=== PATIENT | male | born 1950 | race Caucasian/White ===

== ENCOUNTER 2016-11-22 11:28 | Inpatient (IN) ==
[2016-11-22] MEDS ORDERED: Aspirin 81 MG TAB.CHEW PO ONE (12:47)
--- NOTE | 2016-11-22 12:50 | Emergency Department Note ---
Disposition Clinical Impression: Non-ST elevated myocardial infarction Disposition: Admitted As Inpatient Condition: Fair Referrals: El Herman MD [Primary Care Provider] - Forms: ED Satisfaction Letter Time of Disposition: 13:37 Chest Pain HPI - General Chief Complaint: ED Chest Pain Stated Complaint: chest pain Time Seen by Provider: 11/22/16 12:40 Source: patient, family Mode of arrival: private vehicle Limitations: no limitations Vital Signs Reviewed: Yes Nursing Notes Reviewed: Yes - History of Present Illness Pt complaint: chest pain Onset (ago): day(s) (3 days) Duration: intermittent (Noted particularly at night when lying down. This current episode has been going on since late last night and has been constant and continuous since then although not as intense at this time as it has been throughout the night.) Onset: during rest Pain Location: left chest Severity: moderate Severity scale (1-10): 5 Quality: heaviness Pain Radiation: LUE Improves with: nothing Worsens with: nothing (The patient notes that the discomfort is worse at night when he is laying in bed. He does not note an increase in discomfort with exertion) Associated symptoms: Reports: nausea. Denies: diaphoresis, dyspnea - Related Data Home Medications Medication Instructions Recorded Confirmed Aripiprazole [Abilify] 2 mg PO HS 12/16/15 07/18/16 Aspirin 325 mg PO DAILY 12/16/15 07/18/16 Citalopram Hydrobromide [Celexa] 40 mg PO DAILY 12/16/15 07/18/16 Gabapentin [Neurontin] 300 mg PO TID 12/16/15 07/18/16 Oxycodone HCl [Roxicodone 30 MG 30 mg PO 5XD 12/16/15 07/18/16 Immed Release] Acetaminophen [Tylenol Arthritis] 650 mg PO Q6H PRN 05/27/16 07/18/16 Alprazolam [Xanax 0.25 MG Tablet] 0.25 mg PO DAILY 05/27/16 07/18/16 Oxycodone HCl/Acetaminophen 1 tab PO TID PRN 05/27/16 07/18/16 [Percocet 10-325 mg Tablet] Oxygen 1 each .ROUTE AD 07/18/16 07/18/16 Previous Rx's Medication Instructions Recorded Clindamycin HCl [Cleocin HCl] 300 mg PO QID #20 capsule 07/18/16 Allergies Allergy/AdvReac Type Severity Reaction Status Date / Time sulfamethoxazole AdvReac Itching Verified 12/16/15 05:34 [From ] trimethoprim [From ] AdvReac Itching Verified 12/16/15 05:34 All systems ED: reviewed and negative except as stated. Constitutional: Denies: fever, chills ENT ED: Denies: ear pain, throat pain, congestion Cardiovascular: Reports: chest pain. Denies: palpitations Respiratory: Denies: cough, dyspnea, wheezes Gastrointestinal: Reports: nausea. Denies: abdominal pain, vomiting Musculoskeletal: Denies: back pain Integumentary: Denies: rash Neurological: Denies: headache Chest Pain PMH - Past Medical History Medical history: Reports: arthritis, hypertension, kidney stones, TIA, other Surgical history: Reports: sinus surgery, other Psychiatric history: Reports: depression - Social History Smoking Status: Never smoker Alcohol use: Reports: rarely Drug use: Reports: none Physical Exam - General Limitations: no limitations General appearance: alert, in no apparent distress - Head Head exam: atraumatic, normocephalic - Eye Eye exam: Present: normal appearance, PERRL, EOMI - ENT ENT exam: normal exam, normal oropharynx, mucous membranes moist, normal external ear exam - Neck Neck exam: Present: normal inspection, full ROM. Absent: tenderness, meningismus - Chest Chest inspection: Present: normal inspection, symmetric chest wall rise. Absent : tenderness - Respiratory Respiratory exam: Present: normal lung sounds bilaterally. Absent: respiratory distress, wheezes - Cardiovascular Cardiovascular exam: Present: regular rate, normal rhythm, normal heart sounds - Abdominal Exam Abdominal exam: Present: soft, Non-Tender - Extremities Exam Extremities exam: Present: normal inspection, full ROM. Absent: pedal edema - Back Exam Back exam: Present: full ROM. Absent: tenderness - Neurological Exam Neurological exam: Present: alert, oriented X3 - Psychiatric Psychiatric exam: Present: normal affect, normal mood - Skin Skin exam: Present: warm, dry. Absent: rash Course Course Narrative: Patient presents with complaint of chest pain. It seems to be worse with laying down at night. Despite discomfort since the late hours last night, his EKG is normal. Physical exam is unremarkable. The patient does have cardiac risk factors although I am not certain that today's discomfort is cardiac. I am going to do a chest pain workup on the patient including a d-dimer. I will give him an aspirin. Disposition will be based on diagnostic results and reevaluation. - Reevaluation(s) Reevaluation #1: Patient's troponin came back elevated. We will treat him as an and STEMI. I will arrange to get him admitted. At this time he is asymptomatic. Time: 13:36 Reevaluation #2: Patient remains asymptomatic. I spoke with the hospitalist. We will arrange the admission. Time: 15:19 - Consultations Consultation #1: Dr. Ying, hospitalist - I discussed the case with the hospitalist and she has accepted the patient for admission. She is aware of presentation, current symptoms, and diagnostic results. Time: 15:17 Vital Signs Temperature 98.7 F 11/22/16 11:29 Pulse Rate 75 11/22/16 11:29 Respiratory Rate 20 11/22/16 11:29 Blood Pressure 155/94 11/22/16 11:29 O2 Sat by Pulse Oximetry 98 11/22/16 11:29 Temperature 98.7 F 11/22/16 11:29 Pulse Rate 75 11/22/16 11:29 Respiratory Rate 20 11/22/16 11:29 Blood Pressure 155/94 11/22/16 11:29 O2 Sat by Pulse Oximetry 98 11/22/16 11:29 Oxygen Delivery Oxygen Delivery Room Air Chest Pain - Medical Records Medical records reviewed: Yes I reviewed the patient's medical records. - Lab Data Lab results reviewed: Yes I reviewed the patient's lab results. Result diagrams: 11/22/16 12:52 11/22/16 12:52 Lab Results 11/22/16 11/22/16 11/22/16 Range/Units 12:52 12:52 12:52 WBC 9.6 (4.3-11.1) K/mcL RBC 4.87 (4.19-5.50) M/mcL Hgb 15.0 (12.9-16.9) g/dL Hct 45.7 (37.5-50.1) % MCV 93.8 (83.0-100.0) fL MCH 30.8 (28.0-33.3) pg MCHC 32.8 (31.6-35.5) g/dL RDW 13.4 (11.5-14.5) % Plt Count 226 (140-400) K/mcL MPV 9.5 (9.4-12.4) fL Immature Gran % 0.4 (0-4) % Seg Neutrophils % 66.6 % Lymphocytes % 23.4 % Monocytes % 7.4 % Eosinophils % 1.9 % Basophils % 0.3 % Neutrophils # 6.4 (1.6-8.9) K/mcL Lymphocytes # 2.2 (0.6-4.6) K/mcL Monocytes # 0.7 (0.0-1.3) K/mcL Eosinophils # 0.2 (0.0-0.6) K/mcL Basophils # 0.0 (0.0-0.2) K/mcL PT 11.5 (9.4-12.1) Seconds INR 1.1 APTT 29.4 (26.0-36.0) Seconds D-Dimer 326 (0-500) ng/mLFEU Sodium 139 (136-145) mEq/L Potassium 4.6 H (3.5-4.5) mEq/L Chloride 104 (98-109) mEq/L Carbon Dioxide 25 (19-29) mEq/L BUN 20 (8-26) mg/dL Creatinine 0.87 (0.72-1.25) mg/dL Est GFR ( Amer) > 60 (> 60) Est GFR (Non-Af Amer) > 60 (> 60) BUN/Creatinine Ratio 23 (6-26) Glucose 94 (70-99) mg/dL Calculated Osmolality 290 (280-300) Calcium 9.8 (8.6-10.8) mg/dL Troponin I (0-0.03) ng/mL 11/22/16 11/22/16 Range/Units 12:52 14:02 WBC (4.3-11.1) K/mcL RBC (4.19-5.50) M/mcL Hgb (12.9-16.9) g/dL Hct (37.5-50.1) % MCV (83.0-100.0) fL MCH (28.0-33.3) pg MCHC (31.6-35.5) g/dL RDW (11.5-14.5) % Plt Count (140-400) K/mcL MPV (9.4-12.4) fL Immature Gran % (0-4) % Seg Neutrophils % % Lymphocytes % % Monocytes % % Eosinophils % % Basophils % % Neutrophils # (1.6-8.9) K/mcL Lymphocytes # (0.6-4.6) K/mcL Monocytes # (0.0-1.3) K/mcL Eosinophils # (0.0-0.6) K/mcL Basophils # (0.0-0.2) K/mcL PT 11.7 (9.4-12.1) Seconds INR 1.1 APTT 29.1 (26.0-36.0) Seconds D-Dimer (0-500) ng/mLFEU Sodium (136-145) mEq/L Potassium (3.5-4.5) mEq/L Chloride (98-109) mEq/L Carbon Dioxide (19-29) mEq/L BUN (8-26) mg/dL Creatinine (0.72-1.25) mg/dL Est GFR ( Amer) (> 60) Est GFR (Non-Af Amer) (> 60) BUN/Creatinine Ratio (6-26) Glucose (70-99) mg/dL Calculated Osmolality (280-300) Calcium (8.6-10.8) mg/dL Troponin I 1.22 H* (0-0.03) ng/mL - Radiology Data Radiology results reviewed: Yes I reviewed the patient's radiology results. - EKG Data EKG attestation: Yes I reviewed and interpreted this EKG. EKG shows normal: sinus rhythm, axis, intervals, QRS complexes, ST-T waves Rate: normal Interpretation: no acute changes, normal EKG
[2016-11-22 13:08] LABS: Basophils % 0.3 %; Eosinophils # 0.2 K/mcL (0.0-0.6); Eosinophils % 1.9 %; Hematocrit 45.7 % (37.5-50.1); Immature Granulocytes % 0.4 % (0-4); Lymphocytes # 2.2 K/mcL (0.6-4.6); Lymphocytes % 23.4 %; Mean Corpuscular HGB Conc 32.8 g/dL (31.6-35.5); Mean Corpuscular Hemoglobin 30.8 pg (28.0-33.3); Mean Corpuscular Volume 93.8 fL (83.0-100.0); Mean Platelet Volume 9.5 fL (9.4-12.4); Monocytes # 0.7 K/mcL (0.0-1.3); Monocytes % 7.4 %; Neutrophils # 6.4 K/mcL (1.6-8.9); Platelet Count 226 K/mcL (140-400); Red Blood Count 4.87 M/mcL (4.19-5.50); Red Cell Distribution Width 13.4 % (11.5-14.5); Segmented Neutrophils % 66.6 %
[2016-11-22 13:18] LABS: INR 1.1; Prothrombin Time 11.5 Seconds (9.4-12.1)
[2016-11-22 13:20] LABS: Activated Partial Thrombo Time 29.4 Seconds (26.0-36.0)
[2016-11-22 13:22] LABS: BUN/Creatinine Ratio 23 (6-26); Blood Urea Nitrogen 20 mg/dL (8-26); Calcium 9.8 mg/dL (8.6-10.8); Carbon Dioxide 25 mEq/L (19-29); Chloride 104 mEq/L (98-109); Glucose 94 mg/dL (70-99); Osmolality,Calculated 290 (280-300); Potassium 4.6 mEq/L (3.5-4.5); Sodium 139 mEq/L (136-145); eGFR For African Americans > 60 (> 60); eGFR For Non-African Americans > 60 (> 60)
[2016-11-22] MEDS ORDERED: *HR* Heparin 5,000 UNIT/ML VIAL IVP PRN ×2 (13:37)
[2016-11-22] MEDS ORDERED: *HR* Heparin 5,000 UNIT/ML VIAL IVP ONE (13:37)
[2016-11-22 14:22] LABS: INR 1.1; Prothrombin Time 11.7 Seconds (9.4-12.1)
[2016-11-22 14:25] LABS: Activated Partial Thrombo Time 29.1 Seconds (26.0-36.0)
[2016-11-22] MEDS: Heparin 25,000 UNIT/500 ML D5W 25,000 UNIT/500 ML MLS IVC SCH (14:40)
[2016-11-22 15:27] LABS: Hematocrit 45.5 % (37.5-50.1); Hemoglobin 14.9 g/dL (12.9-16.9); Mean Corpuscular HGB Conc 32.7 g/dL (31.6-35.5); Mean Corpuscular Hemoglobin 30.5 pg (28.0-33.3); Mean Corpuscular Volume 93.2 fL (83.0-100.0); Mean Platelet Volume 9.8 fL (9.4-12.4); Platelet Count 242 K/mcL (140-400); Red Blood Count 4.88 M/mcL (4.19-5.50); Red Cell Distribution Width 13.5 % (11.5-14.5)
[2016-11-22] MEDS: Acetaminophen/Aspirin/Caffeine TABLET PO PRN (17:35)
[2016-11-22] MEDS ORDERED: Naloxone 0.4 MG/ML INJ IVP PRN (19:33)
[2016-11-22] MEDS ORDERED: Ondansetron ODT 4 MG TAB.RAPDIS SL PRN (19:33)
[2016-11-22] MEDS ORDERED: *HR* OxyCODONE/APAP 10/325 TABLET PO PRN (19:39)
--- NOTE | 2016-11-22 19:46 | Internal Med History&Physical ---
<MunguiaAlanna M - Last Filed: 11/22/16 19:53> Date of Encounter: 11/22/16 Time of Encounter: 19:41 Assessment and Plan (1) Non-ST elevated myocardial infarction Current visit: Yes Status: Acute Patient with left sided chest pain. Troponin 1.22. EKG showed normal sinus rhythm with no acute abnormalities. Heparin drip. Metoprolol 12.5mg BID started. Lipid panel in the morning Cardiology consulted for likely catheterization. (2) Headache Current visit: Yes Status: Acute Patient reports left sided headache began on Monday evening at the same time his chest pain started. He reports taking exedrine with no relief. Will get CT of the Head without contrast Qualifiers: Headache type: unspecified Headache chronicity pattern: episodic headache Intractability: intractable Qualified Code(s): R51 - Headache (3) Hematuria Current visit: Yes Status: Acute Patient with hematuria after heparin started. He has a history of multiple episodes of kidney stones and reported he thought he felt like he might have another stone again with some mild flank pain. Will monitor H&H every 6 hours while on heparin drip Ultrasound of kidneys, ureters and bladder to assess for cause of hematuria. (4) Chronic pain syndrome Current visit: No Status: Acute Patient with chronic pain syndrome related to degenerative disc disease. He has had a spinal fusion in the past, and has a spinal cord stimulator in place. Will continue home doses of pain medications. (5) DVT prophylaxis Current visit: Yes Status: Acute encourage ambulation as tolerated anti-embolic stockings patient on Heparin drip for NSTEMI, no need for additional pharmacologic anti- coagulation. Internal Medicine - H&P: HPI Chief complaint: chest pain Admitted From: Emergency Dept Plans for Post Hospital Care: Home History of present illness: Mr. Thomas is a 66 year old male with history of HTN, TIA, kidney stones and chronic pain presented to the ED with chest pain. He reports he first noticed the pain on Monday evening, described it as a "pressure" and located on the left side of his chest. He reports when he woke in the morning, the pain was gone. This happened again on Monday evening and Monday evening, but the pain did not go away today, and stayed constant. The chest pain was accompanied by nausea and sweats. He reports a left sided headache also started at the same time on Monday night, and has been unrelieved by exedrine. He reports he has been experiencing shortness of breath on and off over the last few months. He denies any palpitations, fever, chills, vomiting, diarrhea. Evaluation in the ED was significant for elevated troponin to 1.22, EKG showed normal sinus rhythm. CXR was negative for any abnormality. He was started on a heparin drip for the NSTEMI. On exam, patient is alert and oriented in no distress, heart has regular rate and rhythm and lungs are clear bilaterally. He is complaining of a left sided headache. Past Med Surg Social Fam HX - Past Medical History Medical history: arthritis, hypertension, kidney stones, TIA, other (chronic pain) Psychiatric history: depression - Past Surgical History Surgical History: orthopedic, other (left knee arthroscopy x 2), sinus surgery, other (spinal cord stimulator, lithotripsy) - Social History Smoking Status: Never smoker Smokeless Tobacco Status: No Alcohol use: rarely Drug use: none - Family History Mother Name: Dasia Thomas Age: 86 Family Member Ethnicity: Non- Living Status: Age at : 86 Cause of : Hip,lung cancer Father Living Status: Cause of : CVA Hx Family Cancer: Yes Brother Living Status: Age at : 60 Cause of : [place] Hx Family Cardiac Disorders: Yes Internal Medicine - H&P: Meds Aripiprazole [Abilify] 2 mg PO HS 12/16/15 [History] Aspirin 325 mg PO DAILY 12/16/15 [History] Citalopram Hydrobromide [Celexa] 40 mg PO DAILY 12/16/15 [History] Gabapentin [Neurontin] 300 mg PO TID 12/16/15 [History] Oxycodone HCl [Roxicodone 30 MG Immed Release] 30 mg PO 5XD 12/16/15 [History] Oxycodone HCl/Acetaminophen [Percocet 10-325 mg Tablet] 1 tab PO TID PRN [History] Oxygen 2 l NS HS 07/18/16 [History] Allergies sulfamethoxazole [From Junra] Adverse Reaction (Verified 12/16/15 05:34) Itching trimethoprim [From Junra] Adverse Reaction (Verified 12/16/15 05:34) Itching All Systems PM: A 10-system review of systems was performed and is negative for pertinent findings except as documented above in the HPI. - Constitutional Constitutional: no chills, no fever(s), no night sweats - EENT Eyes: no change in vision, no discharge, no pain, no photophobia Ears: no ear discharge, no ear pain, no tinnitus Nose, mouth and throat: no dysphagia, no nasal discharge, no neck pain, no sore throat - Cardiovascular Cardiovascular ROS IM: chest pain, diaphoresis, dyspnea, no lightheadedness, no palpitations, no syncope - Respiratory Respiratory: dyspnea, no cough, no wheezing, no excessive phlegm production - Gastrointestinal Gastrointestinal: no abdominal pain, no diarrhea, no hematemesis, no hematochezia, no melena, no nausea, no vomiting - Genitourinary Genitourinary ROS male: hematuria - Musculoskeletal Musculoskeletal ROS IM: no numbness, no tingling - Integumentary Integumentary IM: no rash, no unusual bruising - Neurological Neurological ROS: no confusion, no convulsions, no focal weakness, no numbness, no tingling, no tremor(s) - Hematologic/Lymphatic Hematologic/Lymphatic: no easy bruising - Constitutional Vitals: Temp Pulse Resp BP Pulse Ox 98.6 F 82 16 144/84 97 11/22/16 16:39 11/22/16 16:39 11/22/16 16:39 11/22/16 16:39 11/22/16 16:39 General appearance: Present: A&O X 3, no acute distress - Head Head exam: Present: atraumatic, normocephalic - Eye Eye exam: Present: PERRL, conjuntiva pink, sclera anicteric Pupils: Present: PERRL - Neck Neck exam general surgery: Present: supple, trachea midline. Absent: lymphadenopathy - Respiratory Respiratory exam: Present: CTAB. Absent: accessory muscle use, rales, rhonchi, wheezes - Cardiovascular Cardiovascular exam: Present: RRR, +S1, +S2. Absent: diastolic murmur, gallop, rubs, systolic murmur - GI/Abdominal GI/Abdominal exam: Present: normal bowel sounds, soft, no peritoneal signs. Absent: distended, tenderness - Extremities Exam Extremities exam: Present: warm, radial pulses palpable and symetrical. Absent : calf tenderness, cyanotic, pedal edema - Neurological Exam Neurological exam: Present: CN II-XII intact, oriented X3, no focal deficits. Absent: pronater drift, facial droop, speech deficit - Skin Skin exam: Present: dry, intact Internal Med - H&P Results - Labs CBC & Chem 7: 11/22/16 14:02 11/22/16 12:52 <Joseph Lemus - Last Filed: 11/23/16 12:33> Internal Medicine - H&P: HPI History of present illness: Mr. Thomas is a 66 year old male All Systems PM: A 10-system review of systems was performed and is negative for pertinent findings except as documented above in the HPI. - Constitutional Vitals: Temp Pulse Resp BP Pulse Ox 98.2 F 65 16 103/72 96 11/23/16 07:00 11/23/16 07:00 11/23/16 07:00 11/23/16 07:00 11/23/16 07:00 Internal Med - H&P Results - Labs CBC & Chem 7: 11/23/16 01:31 11/23/16 01:31 Labs: Short CBC 11/23/16 Range/Units 01:31 WBC 12.1 H (4.3-11.1) K/mcL Hgb 14.2 (12.9-16.9) g/dL Hct 43.4 (37.5-50.1) % Plt Count 226 (140-400) K/mcL Neutrophils # 7.3 (1.6-8.9) K/mcL BMP 11/23/16 01:31 Sodium 138 Potassium 4.4 Chloride 102 Carbon Dioxide 27 BUN 16 Creatinine 0.92 Glucose 106 H Calcium 9.3 Cardiac Enzymes 11/23/16 Range/Units 01:31 Troponin I 2.58 H* (0-0.03) ng/mL - Attending Attestation I examined this patient and my medical decision-making was reviewed with the HOSPITAL NURSE/PA/Advanced Practice Nurse/Resident Physician. I agree with the documented findings, disposition and treatment plan as described except to the extent set forth below. I ahve personally evaluated the pt. Pt presents with Chest pain and had troponin of 1.22 at admission. Being treated for NSTEMI. Pt had an episode of chest pain on the morning of 11/23/15, which promptly improved with sublingual nitroglycerine. Repeat EKG showed no significant changes. Cardiology consultation for possible PCI. Check lipid panel. Continue ASA, heparin infusion , beta idania and statin.
[2016-11-22] MEDS: Gabapentin 300 MG CAPSULE PO SCH (20:59)
[2016-11-22] MEDS: ARIPiprazole 2 MG TABLET PO SCH (21:37)
[2016-11-22 22:55] LABS: Activated Partial Thrombo Time > 360.0 Seconds (26.0-36.0)
[2016-11-22 23:20] LABS: Heparin anti-factor XA UFH 2.65 IU/mL (0.30-0.70)
[2016-11-22] MEDS: *HR* OxyCODONE Immed Rel 15 MG TABLET PO SCH ×2 (23:43→23:46)
[2016-11-23 01:52] LABS: Basophils % 0.2 %; Eosinophils # 0.2 K/mcL (0.0-0.6); Eosinophils % 1.5 %; Hematocrit 43.4 % (37.5-50.1); Hemoglobin 14.2 g/dL (12.9-16.9); Immature Granulocytes % 0.3 % (0-4); Lymphocytes # 3.7 K/mcL (0.6-4.6); Lymphocytes % 30.2 %; Mean Corpuscular HGB Conc 32.7 g/dL (31.6-35.5); Mean Corpuscular Hemoglobin 30.6 pg (28.0-33.3); Mean Corpuscular Volume 93.5 fL (83.0-100.0); Mean Platelet Volume 9.8 fL (9.4-12.4); Monocytes % 7.8 %; Neutrophils # 7.3 K/mcL (1.6-8.9); Platelet Count 226 K/mcL (140-400); Red Blood Count 4.64 M/mcL (4.19-5.50); Red Cell Distribution Width 13.4 % (11.5-14.5)
[2016-11-23 02:06] LABS: BUN/Creatinine Ratio 17 (6-26); Blood Urea Nitrogen 16 mg/dL (8-26); Calcium 9.3 mg/dL (8.6-10.8); Carbon Dioxide 27 mEq/L (19-29); Chloride 102 mEq/L (98-109); Glucose 106 mg/dL (70-99); Osmolality,Calculated 288 (280-300); Potassium 4.4 mEq/L (3.5-4.5); Sodium 138 mEq/L (136-145); eGFR For African Americans > 60 (> 60); eGFR For Non-African Americans > 60 (> 60)
[2016-11-23 02:07] LABS: Chol/HDL Ratio 2.8 (0-4.9)
[2016-11-23] MEDS: Heparin 25,000 UNIT/500 ML D5W 25,000 UNIT/500 ML MLS IVC SCH (04:18)
[2016-11-23] MEDS ORDERED: Nitroglycerin 0.4 MG TAB.SUBL SL PRN (06:33)
--- NOTE | 2016-11-23 06:52 | Electrocardiograph Report ---
Test Date: 2016-11-22 Pat Name: Pankaj Thomas Department: 104 Room: [facility] Gender: M [employer]: : 1950 Requested By: El Talbert Order Number: [id number] Reading MD: Raheel Borja MD Measurements Intervals [place] Rate: 69 P: 0 IA: 339 QRS: -6 QRSD: 101 T: 37 QT: 372 QTc: 391 Interpretive Statements ELECTRONIC ATRIAL PACEMAKER ELECTRONIC VENTRICULAR PACEMAKER ABNORMAL RHYTHM ECG Electronically Signed On 11-23-16 06:50:17 EST by Raheel Borja MD
[2016-11-23] MEDS: Gabapentin 300 MG CAPSULE PO SCH ×3 (07:50→20:19)
[2016-11-23] MEDS: *HR* OxyCODONE Immed Rel 15 MG TABLET PO SCH ×4 (07:59→23:36)
[2016-11-23] MEDS ORDERED: Nitroglycerin 25 MG/250 ML INFUS..BTL IVC SCH (08:45)
[2016-11-23] MEDS ORDERED: Aspirin 325 MG TABLET PO SCH (09:00)
--- NOTE | 2016-11-23 09:08 | Cardiology Consult Note ---
Date of Encounter: 11/23/16 Time of Encounter: 08:30 Assessment and Plan (1) Non-ST elevated myocardial infarction Current Visit: Yes Status: Acute Peak troponin 2.58. Intermittent ST elevation associated with CP throughout the night per telemetry review; pain/ST elevation resolved with SL NTG. ECG this AM without acute ischemia. Chest pain free upon exam. Developed hematuria after heparin gtt--stopped. Urology consulted, hx of kidney stones. Spoke to Dr. Recinos, he will see/evaluate later this evening. NTG started. Plavix 600 mg x1 now--discussed with Dr. Parkinson. Check echocardiogram. Continue betablocker. Decrease asa to 81 mg daily, start statin. Cardiac rehab consult placed. Recommend ischemic evaluation, [facility] today. Alternatives, risks, and benefits discussed; he is agreeable to proceed. Will discuss and review patient with Dr. Ferrari. (2) Hematuria Current Visit: Yes Status: Acute Developed hematuria s/p heparin gtt. H/H stable. Report hx of kidney stones and has had similar symptoms over the past week. Urology consulted--will see later this evening. Discussion w patient/family: The assessment and plan as outlined above was discussed with the patient and/or family members who expressed understanding and agreement. All questions were answered. Thank you for involving us in the care of your patient. Please call with any questions. History of Present Illness Consult date: 11/23/16 Requesting physician: Alanna Munguia Consult reason: NSTEMI Chief complaint: Chest pain History of present illness: Mr. Thomas is a 66 year old male with PMH significant for kidney stones s/p lithotripsy, chronic pain s/p back stimulator, arthritis, HTN, and depression who presented to the ED with a 4 day history of left-sided chest aching. Pain is described as intermittent dull and aching with radiation to left arm. Pain has been progressively worsening over the last few days--reports PCP ordered stress test as outpatient. Denies exacerbating symptoms; patient developed CP overnight, alleviated with SL NTG. Risk factors for CAD include: positive family history (x2 brothers, new dx of HTN). Past Med Surg Social Fam HX - Past Medical History Medical history: arthritis, hypertension, kidney stones, TIA, other (chronic pain) Psychiatric history: depression - Past Surgical History Surgical History: orthopedic, other (left knee arthroscopy x 2), sinus surgery, other (spinal cord stimulator, lithotripsy) - Social History Smoking Status: Never smoker Smokeless Tobacco Status: No Alcohol use: rarely Drug use: none - Family History Mother Name: Dasia Thomas Age: 86 Family Member Ethnicity: Non- Living Status: Age at : 86 Cause of : Hip,lung cancer Father Living Status: Cause of : CVA Hx Family Cancer: Yes Brother Living Status: Age at : 60 Cause of : CT Hx Family Cardiac Disorders: Yes Medications and Allergies Aripiprazole [Abilify] 2 mg PO HS 12/16/15 [History] Aspirin 325 mg PO DAILY 12/16/15 [History] Citalopram Hydrobromide [Celexa] 40 mg PO DAILY 12/16/15 [History] Gabapentin [Neurontin] 300 mg PO TID 12/16/15 [History] Oxycodone HCl [Roxicodone 30 MG Immed Release] 30 mg PO 5XD 12/16/15 [History] Oxycodone HCl/Acetaminophen [Percocet 10-325 mg Tablet] 1 tab PO TID PRN [History] Oxygen 2 l NS HS 07/18/16 [History] Allergies sulfamethoxazole [From Junra] Adverse Reaction (Verified 12/16/15 05:34) Itching trimethoprim [From Junra] Adverse Reaction (Verified 12/16/15 05:34) Itching All Systems Review: A 10-system review of systems was performed and is negative for pertinent findings except as documented above in the HPI. - Cardiovascular Cardiovascular: as per HPI Physical Examination Vital Signs, Last 4 Hours Temp Pulse Resp BP Pulse Ox 11/23/16 07:00 98.2 F 65 16 103/72 96 11/23/16 06:49 126/83 General: Conversant, No Apparent Distress HEENT: Atraumatic, Normocephaly, Mucus Membranes Moist Cardiac: Reg Rate and Rhythm, Normal S1 and S2 Lungs: Normal Breath Sounds Neuro: Alert and responsive Abdomen: Soft Skin: No rashes noted on visualized skin Musculoskeletal: No Chest Wall Tenderness Extremities: No Edema, Normal Pulses Results 11/23/16 01:31 11/23/16 01:31 Lab Results 11/22/16 11/23/16 11/23/16 22:24 01:31 01:31 WBC 12.1 H Hgb 14.2 Hct 43.4 Plt Count 226 APTT > 360.0 H* D Sodium Potassium Chloride Carbon Dioxide BUN Creatinine Glucose Calcium Troponin I 2.58 H* 11/23/16 11/23/16 01:31 06:15 WBC Hgb Hct Plt Count APTT 83.8 H D Sodium 138 Potassium 4.4 Chloride 102 Carbon Dioxide 27 BUN 16 Creatinine 0.92 Glucose 106 H Calcium 9.3 Troponin I - EKG Interpretation EKG results cardiology: personally reviewed Consult Discharge Plan - Plan Referrals: El Herman MD [Primary Care Provider] -
[2016-11-23] MEDS ORDERED: 0.9 % Sodium Chloride 500 ML ONE (09:22)
[2016-11-23] MEDS ORDERED: Verapamil 5 MG/2 ML VIAL ONE (09:49)
[2016-11-23] MEDS ORDERED: *HR* Heparin 10,000 UNIT/10 ML VIAL ONE ×2 (09:50→11:32)
[2016-11-23] MEDS ORDERED: Heparin 1,000 UNITS/500 mL NS 500 ML ONE (09:50)
[2016-11-23] MEDS ORDERED: 0.9 % Sodium Chloride 1,000 ML ONE ×2 (09:50→10:15)
[2016-11-23] MEDS ORDERED: Nitroglycerin 1,000 MCG/10 ML VIAL IV ONE (09:50)
[2016-11-23] MEDS ORDERED: *HR* Midazolam HCl 2 MG/2 ML VIAL ONE (10:18)
[2016-11-23] MEDS ORDERED: *HR* FentaNYL (PF) 100 MCG/2 ML VIAL ONE (10:19)
--- NOTE | 2016-11-23 10:24 | Pre-Sedation Evaluation ---
Pre-sedation evaluation - Pre-sedation checklist Date of procedure: 11/23/16 Procedure: [facility] Recent Vitals: Last Vital Signs Temp 98.2 F 11/23/16 07:00 Pulse 65 11/23/16 07:00 Resp 16 11/23/16 07:00 BP 103/72 11/23/16 07:00 Pulse Ox 96 11/23/16 07:00 H&P (including ROS) documented in medical record: Yes Previous reaction to sedatives/anesthetics: No Dietary Status: NPO after Midnight Dentition: No loose teeth or bridges ASA Classification *see protocol: CLASS II-Mild systemic disease Plan of Care: Pt appropriate candidate for procedure/moderate/conscious sedation , Risks/benefits of procedure/sedation discussed w/ patient/family
[2016-11-23] MEDS ORDERED: *HR* Adenosine 6 MG/2 ML VIAL IVP ONE (11:00)
--- NOTE | 2016-11-23 11:40 | Invasive Diagnostic Lab Proc ---
Name: Pankaj Thomas Date of Study: 11/23/2016 Date: 1950 Ht: 66.9in Medical Record#: [id number] Age: 66 Wt: 194.23lb Gender: Male BSA: 2. Order #: [id number] BMI: 30.48 Physicians Procedure Physician: Ventura Parkinson MD, [facility] Referring MD: Referring MD: Staff Name Position Time In Sites, Alanna RT (R) Scrub 10:18 AM Lucia Gamble RN Assistant Front Desk Manager 10:18 AM Elsa Bran RN 10:18 AM Indications Indication Non-Stemi Procedures Performed Procedure L HRT ARTERY/VENTRICLE ANGIO PRQ CARD REVASC AR 1 VSL Pre-Procedure Checklist Informed consent is complete signed and on chart. H\\T\\P is on chart. ID band is on and ID verified with patient. Patient NPO for procedure The procedure was described for the patient and questions were answered. ECG is on chart. Plan of Care Patient will tolerate the procedure without complications. Adequate level of comfort will be maintained. Hemodynamics will remain stable Patient will recover from procedure without complications. Respiratory function will be maintained. Cardiac rhythm will remain stable. Patient temperature will be maintained. Patient and/or family have verbalized understanding of the procedure. Patient Education Chief Complaint/Reason for Test: Cardiac Cath Developmental Category: Geriatric (65+ years) Developmentally Appropriate for Age: Yes Learning Barriers: None Education Needs: Procedure Education Method: Verbal Information Taught: Cardiac Cath Educational Evaluation: Able to repeat information Intravenous Access Time IV Size Location DC'd Fluid/Drip Rate Units RN 10:18 AM Started with 20g 1 1/4" Lt Antecubital 0.9NaCl 25 ml/hr Allergies SULFA (sulfonamide) sulfamethoxazole trimethoprim Vital Signs Time BP (mmHg) HR (bpm) O2 Sat. RR (bpm) LOC 10:49 AM / % 5 = Fully awake and oriented or at pre-proc level 10:49 AM / % 5 = Fully awake and oriented or at pre-proc level 11:04 AM / % 5 = Fully awake and oriented or at pre-proc level 10:24 AM 139 / 94 77 % 16 10:29 AM 116 / 75 72 99 % 16 10:34 AM 123 / 72 76 98 % 14 10:38 AM 94 / 57 83 95 % 16 10:39 AM 84 / 55 81 94 % 12 10:41 AM 100 / 71 83 96 % 15 10:44 AM 114 / 70 75 95 % 22 10:49 AM 101 / 69 73 97 % 14 10:54 AM 121 / 71 74 97 % 15 10:59 AM 124 / 72 74 97 % 12 11:04 AM 114 / 75 79 97 % 14 5 = Fully awake and oriented or at pre-proc level 11:09 AM 116 / 70 75 99 % 32 5 = Fully awake and oriented or at pre-proc level 11:14 AM 118 / 65 68 97 % 10 5 = Fully awake and oriented or at pre-proc level 11:19 AM 116 / 78 78 99 % 17 5 = Fully awake and oriented or at pre-proc level Procedural Medications Time Medication Dose Units Method Given By 10:25 AM Versed 2 mg Intravenous Lucia Gamble RN 10:25 AM Fentanyl 50 mcg Intravenous Lucia Gamble RN 10:22 AM Oxygen 2 L/min nasal cannula Lucia Gamble RN 10:36 AM Heparin 4000 units Nitroglycerin 200 mcg Verapamil 2.5 mg Intraarterial Ventura Parkinson MD, FACC 10:54 AM Heparin 1500 units Intravenous Lucia Gamble RN 10:59 AM Fentanyl 25 mcg Intravenous Lucia Gamble RN 11:00 AM Nitroglycerin 100 mcg Intracoronary Ventura Parkinson MD 11:30 AM Heparin 1000 units Intravenous Lucia Gamble RN ASA Classification: CLASS II- Mild systemic disease (i.e. well-controlled diabetes, hypertension, asthma, cigarette smoking) Marvin Score Preprocedure Postprocedure Activity 2- Moves 4 extremities sustained head lift Activity Circulation 2- SBP +/= 20 points of pre-anesthetic level Circulation Consciousness 2- Awake and alert oriented x 3 Consciousness O2 Saturation 2- Able to maintain O2 satruation of 92% on room air O2 Saturation Respiratory 2- Able to deep breathe and cough well Respiratory Total Score 10 Total Score Contrast Agent: Isovue Diagnostic Contrast: 93 ml Total Contrast: 93 ml Fluoro Dose: 1129 mGy Activated Clotting Time Time Seconds to Clot 10:54 AM 264 Procedure Log Time Note Enter By 10:18 AM Pt arrived to label drier 2 at 10:18 ejohnson 10:18 AM Alanna Villalba (R) Position: Scrub Time in: 10:18 ejohnson 10:18 AM Lucia Gamble RN Position: Assistant Front Desk Manager Time in: 10:18 ejohnson 10:18 AM Elsa Bran RN Position: Time in: 10:18 ejohnson 10:18 AM Patient charges- Angio tray pack, Navilyst 3mm J, Pulse Oximetry and ACIST tubing and transducer ejohnson 10:18 AM IV Supplies used: J loop Angio Cath. ejohnson 10:18 AM Case Delayed No ejohnson 10:19 AM Hair removed from procedure site in procedure lab using clippers. Right wrist prepped with Chloraprep by Alanna Villalba (R) then patient draped. Skin intact. ejohnson 10:19 AM Meet and greet completed ejohnson 10:19 AM Sign in performed according to hospital policy. ejohnson 10:19 AM Procedure start : ejohnson 10: AM Time: 10: Oxygen on at 2 L/min per nasal cannula by Lucia Gamble RN ejohnson 10:23 AM Vitals capture started with the following parameters, Patient=Adult, Interval=5 min, Initial Xppmhmwr=503 mmHg, Deflation Rate=5 mmHg, Cuff placed on Right Arm 10:23 AM CathStat 10:23 AM Recorded ECG: HR=77 Condition=Condition 1 10:24 AM HR=77 bpm, YSCT=505/94 mmhg, Resp=16 B/min, Comment=SR 10:25 AM Time: 10:25 Versed 2 mg Intravenous Given by Lucia Gamble RN ejohnson 10:25 AM Time: 10:25 Fentanyl 50 mcg Intravenous Given by Lucia Gamble RN ejohnson 10:29 AM HR=72 bpm, ZUDT=296/75 mmhg, SpO2=99.0 %, Resp=16 B/min, Comment=SR 10:30 AM patient complaints of bloody urine, red iin color. Dr. Parkinson aware ejohnson 10:34 AM HR=76 bpm, TLKC=877/72 mmhg, SpO2=98.0 %, Resp=14 B/min, Comment=SR 10:35 AM Time out performed according to hospital policy ejohnson 10:36 AM Access obtained by percutaneous puncture. 6Fr 10cm Terumo Glidesheath sheath placed in right Radial artery. [id number] ejohnson 10:36 AM Time: 10:36 Patient given 4,000 units Heparin, 200 mcg Nitroglycerin, and 2.5 mg Verapamil Intraarterial by Ventura Parkinson MD, [facility] ejohnson 10:37 AM 5Fr TIG catheter inserted over the wire DN ejohnson 10:37 AM NIBP STAT measurement started. 10:38 AM Pressure channel 1 zeroed. 10:38 AM Recorded Pressure: LV, HR=77, Condition=Condition 1 (Left Ventricle) LV 92/5/10 10:38 AM Catheter selectively placed in left ventricle ejohnson 10:38 AM Bolus angiogram of left Ventricle complete: 10 ml/sec for a total of 30 mls ejohnson 10:38 AM HR=83 bpm, NIBP=94/57 mmhg, SpO2=95.0 %, Resp=16 B/min, Comment=SR 10:39 AM Recorded Pressure: LV, Ao, HR=77, Condition=Condition 1 (Left Ventricle) LV 93/6/12, (Aorta) Ao 81/57/65 10:39 AM Recorded Pressure: Ao, HR=71, Condition=Condition 1 (Aorta) Ao 75/59/66 10:39 AM HR=81 bpm, NIBP=84/55 mmhg, SpO2=94.0 %, Resp=12 B/min, Comment=SR 10:39 AM LCA angiography performed in multiple views. ejohnson 10:40 AM Recorded Pressure: Ao, HR=71, Condition=Condition 1 (Aorta) Ao 85/67/76 10:40 AM NIBP STAT measurement started. 10:41 AM IV fluids wide open ejohnson 10:41 AM HR=83 bpm, STDX=220/71 mmhg, SpO2=96.0 %, Resp=15 B/min, Comment=SR 10:41 AM Recorded Pressure: Ao, HR=84, Condition=Condition 1 (Aorta) Ao 94/78/86 10:42 AM Coronary Dominance: right ejohnson 10:42 AM Catheter removed ejohnson 10:43 AM Inflation device was opened. ejohnson 10:44 AM HR=75 bpm, ZDBK=166/70 mmhg, SpO2=95.0 %, Resp=22 B/min, Comment=SR 10:44 AM 6Fr RBR 3.5 Convey guide catheter was used to cannulate the PCI vessel successfully. reused? No ejohnson 10:46 AM .014 PT Graphix 180cm guide wire across target lesion- successful. reused? No ejohnson 10:48 AM Guide wire removed intact. ejohnson 10:48 AM Guide catheter removed intact. ejohnson 10:48 AM 6Fr IM Runway guide catheter was used to cannulate the PCI vessel successfully. reused? No ejohnson 10:49 AM HR=73 bpm, YQCY=384/69 mmhg, SpO2=97.0 %, Resp=14 B/min, Comment=SR 10:49 AM .014 PT Graphix 180cm guide wire across target lesion- successful. reused? Yes ejohnson 10:49 AM Time: 10:49 Patient comfortable and pain free: Yes ejohnson 10:49 AM Time: 10:49LOC: 5 = Fully awake and oriented or at pre-proc level ejohnson 10:51 AM IV rate decreased to 150ml/hr ejohnson 10:52 AM 2.5 mm x 20 mm Emerge Monorail balloon across target lesion- successful. reused? No ejohnson 10:53 AM Balloon inflated @ 14 radha for 9 seconds ejohnson 10:54 AM At 10:54 the ACT was 264 seconds. ejohnson 10:54 AM Balloon inflated @ 14 radha for 12 seconds ejohnson 10:54 AM HR=74 bpm, OMFZ=936/71 mmhg, SpO2=97.0 %, Resp=15 B/min, Comment=SR 10:54 AM Time: 10:54 Heparin 1500 units Intravenous Given by Lucia Gamble RN ejinnson 10:56 AM 3.0mm x 32mm Rebel [employer] bare metal stent across target lesion- successful Lot #[id number] ejohnson 10:58 AM Stent deployed @ 18 radha for 12 seconds ejohnson 10:59 AM Time: 10:59 Fentanyl 25 mcg Intravenous Given by Lucia Gamble RN ejinnson 10:59 AM HR=74 bpm, EHAG=888/72 mmhg, SpO2=97.0 %, Resp=12 B/min, Comment=SR 11:00 AM Time: 11:00 Nitroglycerin 100 mcg Intracoronary Given by Ventura Parkinson MD ejinnson 11:00 AM Arterial sheath pulled, Vasc Band closure device used and was Successful S/N. ejohnson 11:01 AM Stent delivery system removed intact. ejohnson 11:03 AM 3.0mm x 20mm Rebel [employer] bare metal stent across target lesion- successful Lot #[id number] ejohnson 11:03 AM Recorded Pressure: Ao, HR=78, Condition=Condition 1 (Aorta) Ao 115/77/96 11:04 AM HR=79 bpm, BRIK=695/75 mmhg, SpO2=97.0 %, Resp=14 B/min, Comment=SR 11:04 AM Lesion found in Mid RCA. Pre Stenosis: 90 Pre PEDRO Flow: 3: Complete and Brisk Flow/Perfusion ejohnson 11:04 AM Lesion found in Distal RCA. Pre Stenosis: 99 Pre PEDRO Flow: 3: Complete and Brisk Flow/Perfusion ejohnson 11:04 AM Time: 10:49 Patient comfortable and pain free: Yes ejohnson 11:04 AM Time: 10:49LOC: 5 = Fully awake and oriented or at pre-proc level ejohnson 11:04 AM Lesion found in 1st Marginal. Pre Stenosis: 90 Pre PEDRO Flow: 2: Partial Flow/Perfusion (> 1 but < 3) ejohnson 11:05 AM Right Coronary, Right Posterior Descending Arteries with Right Posterolateral and Acute Marginal branches with 99 % stenosis. ejohnson 11:05 AM Circumflex, Obtuse Marginal, Left Posterior Descending, and Left Posterolateral Coronary Arteries with 90 % stenosis. ejohnson 11:05 AM .014 Prowater 180cm guide wire across target lesion- successful. reused? No ejohnson 11:09 AM HR=75 bpm, CZGY=117/70 mmhg, SpO2=99.0 %, Resp=32 B/min, Comment=SR 11:11 AM Stent deployed @ 15 radha for 21 seconds ejohnson 11:13 AM Stent delivery system removed intact. ejohnson 11:14 AM HR=68 bpm, GBFJ=082/65 mmhg, SpO2=97.0 %, Resp=10 B/min, Comment=SR 11:14 AM 3.25 mm x 20mm NC Emerge balloon across target lesion- successful. reused? No ejohnson 11:15 AM Balloon inflated @ 20 radha for 13 seconds ejohnson 11:17 AM Balloon inflated @ 20 radha for 10 seconds ejohnson 11:18 AM Balloon inflated @ 20 radha for 7 seconds ejohnson 11:18 AM Balloon catheter removed intact. ejohnson 11:19 AM HR=78 bpm, VGMC=214/78 mmhg, SpO2=99.0 %, Resp=17 B/min, Comment=SR 11:20 AM Time: 11:04LOC: 5 = Fully awake and oriented or at pre-proc level ejohnson 11:20 AM Time: 11:04 Patient comfortable and pain free: Yes ejohnson 11:23 AM Sign out completed: Radiation Dose 1129.33 mGy Fluoro Time: 16.6 Isovue 370 - 200ml contrast 93 ml given by Ventura Parkinson MD, FACC. Complications: NoneCardiac Rehab Consult needed: YesConfirmed administered medications: Yes ejohnson 11:23 AM 13 ml air in Vasc Band. 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 ejohnson 11:26 AM Post ECG NSR ejohnson 11:26 AM Post Blood Pressure 116/78 ejohnson 11:26 AM 11:26 Post Pulses Rt Radial 1+ ejohnson 11:26 AM Information taught Cardiac Cath and Vasc Band ejohnson 11:27 AM Education needs Plan of Care and Responsibilities of Patient in Care ejohnson 11:27 AM Learning barriers :None ejohnson 11:27 AM Education Methods Verbal ejohnson 11:27 AM Education evaluation Able to repeat information ejohnson 11:28 AM Site status No bleeding/hematoma - Rt Wrist as reported by Sites, Alanna RT (R) at 11:27 ejohnson 11:29 AM Time: 11:30 Heparin 1000 units Intravenous Given by Lucia Gamble RN ejohnson 11:30 AM Report given to Be RUCKER Pt taken to 2N Room #28. 11:30 ejohnson 11:30 AM Delay to floor No ejohnson 11:30 AM Patient out of room: 11:30 ejohnson 11:30 AM Family placed in consult room. ejohnson 11:30 AM Complications: None ejohnson Complications Complication None Hemodynamics Pressures Site Systolic/A Wave Diastolic/V Wave Mean LV 92 5 10 LV 93 6 12 AO 81 57 65 AO 75 59 66 AO 85 67 76 AO 94 78 86 AO 115 77 96 Post Procedure Information Blood Pressure: 116/78 mmHg Rhythm: NSR Post procedural instructions were given Closure Device Time Device Success/Fail 11/23/2016 11:20:00 AM Mechanical Compression Successful Site Checks Time Location Status Staff Sheath In? Note 11:27 AM Rt Wrist No bleeding/hematoma Sites, Alanna RT (R) Pulses Time Site Pre-Procedure Post-Procedure Note 11/23/2016 10:18:00 AM Bilateral DP \\T\\ PT 1+ 11/23/2016 10:18:00 AM Bilateral radial 2+ 11:26:00 AM Rt Radial 1+ Updated by Elsa Bran RN on 11/23/2016 11:36:00 AM Elsa Bran RN electronically signed on 11/23/2016 11:36:34 AM with status of Final
[2016-11-23] MEDS ORDERED: *HR* Morphine 2 MG/ML SYRINGE IVP ONE (12:49)
--- NOTE | 2016-11-23 13:02 | Internal Med Progress Note ---
<Riley Hernandez - Last Filed: 11/23/16 13:00> Date of Encounter: 11/23/16 Time of Encounter: 08:20 - Assessment and plan (1) Non-ST elevated myocardial infarction Current Visit: Yes Status: Acute Assessment and plan: Mr. Mahan 66-year-old male without history of coronary artery disease or previous AR was admitted with left sided chest pressure with pain radiating to left arm and left-sided headache. On admission he had troponins 2 first was 1.22 second was 2.58. EKG has been reviewed without signs of ST elevation. Cardiology has been consult to as evaluated the patient. Mr. Yeager was originally started on heparin and developed hematuria with retroperitoneal ultrasound demonstrating left-sided kidney stone at 8 mm and right sided 1.2 cm stone, no hydronephrosis demonstrated. It was determined that the benefit outweighed the risk for left heart catheterization. Plan: - Mr. gomez is to undergo left heart catheterization this morning. Continue nothing by mouth until post procedure. - Continue aspirin, Lipitor, Plavix 75 mg by mouth daily, Lopressor 12.5 mg by mouth, nitroglycerin drip and heparin IV. - Echocardiogram has been ordered (2) Headache Current Visit: Yes Status: Acute Assessment and plan: Patient currently has a headache likely related to nitroglycerin drip. He did have a headache at the time of admission that did not demonstrate any acute intracranial abnormalities. Plan: - Continue monitoring patient's headache status after nitroglycerin IV has been discontinued Qualifiers: Headache type: unspecified Headache chronicity pattern: episodic headache Intractability: intractable Qualified Code(s): R51 - Headache (3) Hematuria Current Visit: Yes Status: Acute Assessment and plan: Patient hematuria when heparinized. Retroperitoneal echocardiogram demonstrated left pelvic renal stone at 8 mm. And right pelvic renal stone at 1.2 cm. Patient currently denies any blood in his urine. Plan: - Continue to monitor as patient is undergoing left heart catheterization and anticoagulation. - Repeat a.m. CBC to monitor hemoglobin and hematocrit. (4) DVT prophylaxis Current Visit: Yes Status: Acute Assessment and plan: Patient is currently on heparin. Plan to start SCDs after procedure. - Subjective Interval history: Mr. Lorenzo 66-year-old male is seen and evaluated patient bedside this morning. He is awake alert and interactive in no acute distress. He denies any current chest pain, chest pressure, radiation of pain to his left arm or left face. He is on nitroglycerin and believes that his headache is related to this medication. He denies any nausea, vomiting, change in vision, abdominal pain, diarrhea or constipation. He has been moving his bowels and bladder appropriately. He is planned for a cardiac catheterization this morning and he denies any reservations or concerns at this time. - Constitutional Vitals: Temp Pulse Resp BP Pulse Ox 98.2 F 65 16 103/72 96 11/23/16 07:00 11/23/16 07:00 11/23/16 07:00 11/23/16 07:00 11/23/16 07:00 General appearance: Present: A&O X 3, no acute distress - Head Head exam: Present: atraumatic, normocephalic - Eye Eye exam: Present: PERRL, conjuntiva pink, sclera anicteric - ENT ENT exam: Present: mucous membranes moist - Neck Neck exam general surgery: Present: supple, trachea midline. Absent: lymphadenopathy - Respiratory Respiratory exam: Present: CTAB. Absent: accessory muscle use, rales, rhonchi, wheezes - Cardiovascular Cardiovascular exam: Present: RRR, +S1, +S2. Absent: diastolic murmur, gallop, rubs, systolic murmur - GI/Abdominal GI/Abdominal exam: Present: normal bowel sounds, soft, no peritoneal signs. Absent: distended, tenderness - Extremities Exam Extremities exam: Present: warm, radial pulses palpable and symetrical. Absent : calf tenderness, cyanotic, pedal edema - Back Exam Back exam: Present: normal inspection - Neurological Exam Neurological exam: Present: alert, CN II-XII intact, oriented X3, no focal deficits, strengths equal and symetr throughout. Absent: pronater drift, facial droop, speech deficit - Psychiatric Psychiatric exam: Present: normal affect, normal mood - Skin Skin exam: Present: dry, warm Internal Medicine: Result - Labs CBC & Chem 7: 11/23/16 01:31 11/23/16 01:31 Labs: Short CBC 11/23/16 Range/Units 01:31 WBC 12.1 H (4.3-11.1) K/mcL Hgb 14.2 (12.9-16.9) g/dL Hct 43.4 (37.5-50.1) % Plt Count 226 (140-400) K/mcL Neutrophils # 7.3 (1.6-8.9) K/mcL BMP 11/23/16 01:31 Sodium 138 Potassium 4.4 Chloride 102 Carbon Dioxide 27 BUN 16 Creatinine 0.92 Glucose 106 H Calcium 9.3 Cardiac Enzymes 11/23/16 Range/Units 01:31 Troponin I 2.58 H* (0-0.03) ng/mL - ABG Interpretation ABG results: PT/INR, D-dimer PT 11.7 Seconds (9.4-12.1) 11/22/16 14:02 D-Dimer 326 ng/mLFEU (0-500) 11/22/16 12:52 Consult Discharge Plan - Plan Referrals: El Herman MD [Primary Care Provider] - <Trace Ramon - Last Filed: 11/23/16 17:58> - Assessment and plan (1) Non-ST elevated myocardial infarction Current Visit: Yes Status: Acute (2) CAD (coronary artery disease) Current Visit: Yes Status: Acute Qualifiers: Coronary Disease-Associated Artery/Lesion type: habematolel artery [place] vs. transplanted heart: habematolel heart Associated angina: without angina Qualified Code(s): I25.10 - Atherosclerotic heart disease of habematolel coronary artery without angina pectoris (3) History of heart artery stent Current Visit: Yes Status: Acute (4) Hematuria Current Visit: Yes Status: Acute (5) Chronic pain syndrome Current Visit: No Status: Acute (6) Headache Current Visit: Yes Status: Acute Qualifiers: Headache type: unspecified Headache chronicity pattern: episodic headache Intractability: intractable Qualified Code(s): R51 - Headache - Constitutional Vitals: Temp Pulse Resp BP Pulse Ox 98.3 F 73 15 128/85 97 11/23/16 15:00 11/23/16 15:00 11/23/16 15:00 11/23/16 15:00 11/23/16 15:00 Internal Medicine: Result - Labs CBC & Chem 7: 11/23/16 01:31 11/23/16 01:31 Labs: Short CBC 11/23/16 Range/Units 01:31 WBC 12.1 H (4.3-11.1) K/mcL Hgb 14.2 (12.9-16.9) g/dL Hct 43.4 (37.5-50.1) % Plt Count 226 (140-400) K/mcL Neutrophils # 7.3 (1.6-8.9) K/mcL BMP 11/23/16 01:31 Sodium 138 Potassium 4.4 Chloride 102 Carbon Dioxide 27 BUN 16 Creatinine 0.92 Glucose 106 H Calcium 9.3 Cardiac Enzymes 11/23/16 Range/Units 01:31 Troponin I 2.58 H* (0-0.03) ng/mL - ABG Interpretation ABG results: PT/INR, D-dimer PT 11.7 Seconds (9.4-12.1) 11/22/16 14:02 D-Dimer 326 ng/mLFEU (0-500) 11/22/16 12:52 - Attending Attestation I examined this patient and my medical decision-making was reviewed with the Resident Physician on 11/23/16. I agree with the documented findings, disposition and treatment plan as described except to the extent set forth below. Mr. Thomas is currently admitted for NSTEMI. He is to have cardiac cath though he has developed gross hematuria. He remains high risk due to cardiac disease and new hematuria. Mr. Thomas feels OK at this time. He is now s/p cath and stent. He is breathing OK and has no chest pain. Exam Alert and comfortable Heart reg Lungs clear Abd soft I/P 1. NSTEMI 2. CAD s/p stent 3. hematuria Further diagnoses and plan as above.
--- NOTE | 2016-11-23 15:20 | Invasive Diagnostic Lab ---
Name: Pankaj Thomas Date of Study: 11/23/2016 Date: 1950 Ht: 170.0 cm /66.9 in Medical Record#: [id number] Age: 66 Wt: 88.1 kg / 194.23 lb Account/Order#: [id number] Gender: Male BSA: 2. Order #: [id number] Fluoro Dose: 1129 mGy BMI: 30.48 Procedure Physician: Ventura Parkinson MD, FACC Referring MD: El Herman MD Referring MD: Procedures Performed: LEFT HEART CATH PCI of Acute [place] Stent w/ PTCA to RCA (BMS) Moderate sedation Indications: STEMI, ongoing angina with elevated troponin Impressions: There is multivessel coronary artery disease s/p transradial PCI RCA BMS x 2 in overlapping fashion The left ventricle is normal and has normal contractility EF 65% Recommendations: Optimal medical therapy of patient's disease. Aggressive risk factor modification. If tolerates DAPT, plan for outpatient PCI LAD prior to cardiac rehab History/Risk Factors: TIA Hypertension Procedure Access obtained in the right Radial artery by percutaneous puncture Patient had successful PTCA/Bare Metal Stent placement in the mid and distal RCA. Complications: None Contrast: Isovue 93ml Hemodynamics: Pressures Site Systolic/ A Wave Diastolic/ V Wave End Diastolic/ Mean HR LV 92 5 10 77 LV 93 6 12 76 AO 81 57 65 79 AO 75 59 66 71 AO 85 67 76 71 AO 94 78 86 84 AO 115 77 96 78 LV Ventriculography Ejection Method: LV Gram Ejection Fraction: 65% Wall Motion: CARRANZA Anterobasal Normal Anterolateral Normal Apical: Normal Inferoapical Normal Inferobasal Normal Coronary Dominance: right Lesion Findings/Interventions * Left Main Coronary Artery The LMCA has a mid 30% stenosis * Left Anterior Descending The LAD has a mid 70% stenosis and distal 60% stenosis. The 1st Diagonal has 50% stenosis. * Circumflex There is a 90% stenosis in the 1st Marginal - small vessel <2mm. The lesion has a PEDRO flow of 2. * Right Coronary Artery There is a 90% stenosis in the Mid RCA. The lesion has a PEDRO flow of 2. There is a 99% stenosis in the Distal RCA. The lesion has a PEDRO flow of 2. Interventional Device(s) Vessel Segment Type Name Diameter (mm) Length (mm) Mid RCA bare metal stent Rebel [employer] 3 20 Mid RCA balloon Emerge Monorail 2.5 20 Mid RCA balloon NC Emerge 3.25 20 Distal RCA balloon Emerge Monorail 2.5 20 Distal RCA bare metal stent Rebel [employer] 3 32 Distal RCA balloon NC Emerge 3.25 20 Updated by Elsa Bran RN on 11/23/2016 11:31:46 AM Ventura Parkinson MD, FACC electronically signed on 11/23/2016 3:15:42 PM with status of Final
--- NOTE | 2016-11-23 18:06 | ECHO - Doppler Report ---
Echocardiogram Name: Pankaj Thomas Date of Study: 11/23/2016 Date: 1950 Ht: 67.0 in Medical Record#: [id number] Age: 66 Wt: 194.0 lb Gender: Male BSA: 2 Order #: [id number] Location: [facility] Room #: [id number] Reading Physician: Amari Harper DO, [facility] Data Entry Manager: Rose Chu RVT Ordering Physician: Laina Roe CNP Primary Physician: El Herman MD Indications: NSTEMI Impressions: LVEF 55-60%. Normal LV chamber size, wall thickness and function. Mild segmental left ventricular systolic dysfunction. Mild left ventricular diastolic dysfunction. Normal right ventricular structure and function. Unable to estimate RVSP due to lack of TR jet. No significant valvular dysfunction. Left Ventricular Wall Motion: Rest Echo Findings The basal inferior wall was hypokinetic. All other wall segments showed normal motion. Findings: Study Quality * Technically adequate exam. ECG Findings * Normal sinus rhythm. Left Ventricle * LVEF 55-60%. * Normal LV chamber size, wall thickness and function. * Mild segmental left ventricular systolic dysfunction. * Mild left ventricular diastolic dysfunction. Right Ventricle * Normal right ventricular structure and function. Left Atrium * Mildly dilated left atrium. Right Atrium * Normal right atrial size. Aortic Valve * Trileaflet aortic valve with normal function. * No aortic regurgitation. * No aortic stenosis. Mitral Valve * Normal mitral valve structure and function. * No mitral regurgitation. * No mitral stenosis. Tricuspid Valve * Normal tricuspid valve structure and function. * No tricuspid regurgitation. * Unable to estimate RVSP due to lack of TR jet. Pulmonic Valve * Pulmonic valve is not well visualized. * No pulmonic regurgitation. Aorta * Normally sized aortic root. Pericardium * The pericardium appears normal. IVC * Normal IVC dimensions and inspiratory collapse. Pulmonary Artery * Normal visualized portions of the main pulmonary artery. Interatrial Septum * No evidence of PFO by color Doppler. History Hypertension Family History of CAD History of CAD/PTCA Measurements: BP: 128/ 85 2D Normal Values RVIDd: 2.80 cm <2.7 cm IVSd: .90 cm 0.6 - 1.0 cm LVIDd: 5.90 cm 3.7 - 5.6 cm LVPWd: .60 cm 0.6 - 1.1 cm LVIDs: 4.00 cm 1.5 - 3.6 cm AO: 3.10 cm < 4.0 cm LA: 3.80 cm 2.0 - 4.0cm %FS: 32.20 cm >25 % LA volume: 39 Mitral Valve Peak E:.53 m/sec Peak A:.81 m/sec E/A Ratio:0.7 Peak E' Lat Neri:9.69 cm/s Peak E' Med Neri:5.46 cm/s E/E' Lat Ratio:9.8 E/E' Med Ratio:5.5 Tricuspid Valve TV Regurg Peak Grad: 3.00mmHg TV Regurg Peak Neri: .88m/sec Updated by Amari Harper DO, FACCamilo, JAYLEEN, MALI on 11/23/2016 6:01:01 PM electronically signed on 11/23/2016 6:03:11 PM with status of Final Wall Motion Veliz: 1=Normal, 2=Hypokinesis, 3=Akinesis, 4=Dyskinesis, 5=Aneurysmal, 6=Hyperkinetic, X=Not Visualized (Blank)=Missing
[2016-11-23] MEDS: ARIPiprazole 2 MG TABLET PO SCH (20:19)
[2016-11-23] MEDS: Acetaminophen/Aspirin/Caffeine TABLET PO PRN (21:17)
[2016-11-24] MEDS: *HR* OxyCODONE Immed Rel 15 MG TABLET PO SCH ×3 (01:10→12:13)
[2016-11-24 05:01] VITALS: BP 127/77
[2016-11-24 05:27] LABS: Basophils % 0.3 %; Eosinophils # 0.3 K/mcL (0.0-0.6); Eosinophils % 2.4 %; Hemoglobin 14.3 g/dL (12.9-16.9); Immature Granulocytes % 0.4 % (0-4); Lymphocytes # 3.7 K/mcL (0.6-4.6); Lymphocytes % 34.1 %; Mean Corpuscular HGB Conc 32.5 g/dL (31.6-35.5); Mean Corpuscular Hemoglobin 30.2 pg (28.0-33.3); Mean Platelet Volume 9.8 fL (9.4-12.4); Monocytes % 9.6 %; Neutrophils # 5.7 K/mcL (1.6-8.9); Platelet Count 224 K/mcL (140-400); Red Blood Count 4.73 M/mcL (4.19-5.50); Red Cell Distribution Width 13.6 % (11.5-14.5); Segmented Neutrophils % 53.2 %
[2016-11-24 05:48] LABS: Alanine Aminotransferase 22 Units/L (0-55); Albumin 3.4 g/dL (3.5-5.0); Albumin/Globulin Ratio 0.9 (1.1-2.2); Alkaline Phosphatase 117 Units/L (38-126); Aspartate Amino Transferase 26 Units/L (5-34); BUN/Creatinine Ratio 19 (6-26); Bilirubin,Total 0.5 mg/dL (0.2-1.2); Blood Urea Nitrogen 17 mg/dL (8-26); Calcium 9.7 mg/dL (8.6-10.8); Carbon Dioxide 24 mEq/L (19-29); Chloride 104 mEq/L (98-109); Globulin 3.6 g/dL (2.4-3.5); Glucose 94 mg/dL (70-99); Osmolality,Calculated 287 (280-300); Potassium 4.1 mEq/L (3.5-4.5); Sodium 138 mEq/L (136-145); eGFR For African Americans > 60 (> 60); eGFR For Non-African Americans > 60 (> 60)
[2016-11-24] MEDS: Gabapentin 300 MG CAPSULE PO SCH (07:54)
--- NOTE | 2016-11-24 07:55 | Urology - Consult Note ---
Date of Encounter: 11/24/16 Time of Encounter: 07:53 - Assessment and Plan (1) Hematuria Current Visit: Yes Status: Acute Assessment and plan: 66-year-old man with a history of hematuria. The bleeding started yesterday, and it is improving today. Serial urines were collected and the urine is becoming more clear. He is currently feeling well. He does have a known history of nephrolithiasis, but there is no evidence of obstruction. We will observe from here on. No further urologic intervention required. If his hematuria worsens, please reconsult. Thank you for allowing me to participate in the care of Mr. Thomas. Urology CN:HPI Consult date: 11/24/16 Reason for consult Urology: Gross Hematuria Requesting physician: Trace Ramon History of present illness: 66-year-old man presents with history of chest pain. Upon admission he was noted to have a troponin elevation and was diagnosed with a non-ST elevation myocardial infarction. He was given heparin. Yesterday he began to have bloody urine. I was asked to see the patient as he was about to undergo cardiac catheterization in there be need for further anticoagulants. He reports that his urine was fairly red yesterday, but it has been getting more clear recently. He denies any pain with urination. There did not appear to be any aggravating or relieving factors. He has a history of kidney stones. A CT scan was performed which showed no evidence of hydronephrosis. Contrast cardiac catheterization was located in the bladder. There is no filling defect in the bladder. Past Med Surg Social Fam HX - Past Medical History Medical history: arthritis, hypertension, kidney stones, TIA, other (chronic pain) Psychiatric history: depression - Past Surgical History Surgical History: orthopedic, other (left knee arthroscopy x 2), sinus surgery, other (spinal cord stimulator, lithotripsy) - Social History Smoking Status: Never smoker Smokeless Tobacco Status: No Alcohol use: rarely Drug use: none - Family History Mother Name: Dasia Thomas Age: 86 Family Member Ethnicity: Non- Living Status: Age at : 86 Cause of : Hip,lung cancer Father Living Status: Cause of : CVA Hx Family Cancer: Yes Brother Living Status: Age at : 60 Cause of : DC Hx Family Cardiac Disorders: Yes Medications and Allergies Aripiprazole [Abilify] 2 mg PO HS 12/16/15 [History] Aspirin 325 mg PO DAILY 12/16/15 [History] Citalopram Hydrobromide [Celexa] 40 mg PO DAILY 12/16/15 [History] Gabapentin [Neurontin] 300 mg PO TID 12/16/15 [History] Oxycodone HCl [Roxicodone 30 MG Immed Release] 30 mg PO 5XD 12/16/15 [History] Oxycodone HCl/Acetaminophen [Percocet 10-325 mg Tablet] 1 tab PO TID PRN [History] Oxygen 2 l NS HS 07/18/16 [History] Allergies sulfamethoxazole [From ] Adverse Reaction (Verified 12/16/15 05:34) Itching trimethoprim [From ] Adverse Reaction (Verified 12/16/15 05:34) Itching Review of Systems - Constitutional no chills, no fever(s) - EENT Nose, mouth and throat: no dizziness - Cardiovascular chest pain - Respiratory no dyspnea - Gastrointestinal no nausea, no vomiting - Genitourinary hematuria, no flank pain - Musculoskeletal no back pain - Integumentary no erythema, no rash - Neurological no weakness - Psychiatric no suicidal ideation - Hematologic/Lymphatic no easy bleeding - Allergic/Immunologic no wheezing Exam Initial Vital Signs Temp Pulse Resp BP Pulse Ox 98.7 F 75 20 155/94 98 11/22/16 11:29 11/22/16 11:29 11/22/16 11:29 11/22/16 11:29 11/22/16 11:29 - General physical appearance Present: well developed, well nourished, no distress - Eyes Absent: icteric - ENT Present: normal nares - Neck Present: trachea midline - Respiratory Present: normal respiratory effort - Cardiovascular Cardiovascular exam IM: RRR - Abdomen Abdomen: Present: soft Urology Results - Labs 11/24/16 04:49 11/24/16 04:49 Abnormal lab results APTT 83.8 Seconds (26.0-36.0) H D 11/23/16 06:15 Heparin Anti-Xa, Unfract 2.65 IU/mL (0.30-0.70) H* 11/22/16 22:24 Troponin I 2.58 ng/mL (0-0.03) H* 11/23/16 01:31 Albumin 3.4 g/dL (3.5-5.0) L 11/24/16 04:49 Globulin 3.6 g/dL (2.4-3.5) H 11/24/16 04:49 Albumin/Globulin Ratio 0.9 (1.1-2.2) L 11/24/16 04:49 HDL Cholesterol 60 mg/dL (40-59) H 11/23/16 01:31 Diabetes panel 11/24/16 Range/Units 04:49 Sodium 138 (136-145) mEq/L Potassium 4.1 (3.5-4.5) mEq/L Chloride 104 (98-109) mEq/L Carbon Dioxide 24 (19-29) mEq/L BUN 17 (8-26) mg/dL Creatinine 0.90 (0.72-1.25) mg/dL Glucose 94 (70-99) mg/dL Calcium 9.7 (8.6-10.8) mg/dL AST 26 (5-34) Units/L ALT 22 (0-55) Units/L Alkaline Phosphatase 117 (38-126) Units/L Albumin 3.4 L (3.5-5.0) g/dL Calcium panel 11/24/16 Range/Units 04:49 Calcium 9.7 (8.6-10.8) mg/dL Albumin 3.4 L (3.5-5.0) g/dL Pituitary panel 11/24/16 Range/Units 04:49 Sodium 138 (136-145) mEq/L Potassium 4.1 (3.5-4.5) mEq/L Chloride 104 (98-109) mEq/L Carbon Dioxide 24 (19-29) mEq/L BUN 17 (8-26) mg/dL Creatinine 0.90 (0.72-1.25) mg/dL Glucose 94 (70-99) mg/dL Calcium 9.7 (8.6-10.8) mg/dL Adrenal panel 11/24/16 Range/Units 04:49 Sodium 138 (136-145) mEq/L Potassium 4.1 (3.5-4.5) mEq/L Chloride 104 (98-109) mEq/L Carbon Dioxide 24 (19-29) mEq/L BUN 17 (8-26) mg/dL Creatinine 0.90 (0.72-1.25) mg/dL Glucose 94 (70-99) mg/dL Calcium 9.7 (8.6-10.8) mg/dL Total Bilirubin 0.5 (0.2-1.2) mg/dL AST 26 (5-34) Units/L ALT 22 (0-55) Units/L Alkaline Phosphatase 117 (38-126) Units/L Albumin 3.4 L (3.5-5.0) g/dL All other labs normal. - Imaging CT scan - abdomen: report reviewed, image reviewed CT scan - pelvis: report reviewed, image reviewed Consult Discharge Plan - Plan Referrals: El Herman MD [Primary Care Provider] -
[2016-11-24] MEDS ORDERED: Aspirin Enteric Coated 81 MG Tablet PO SCH (09:00)
--- NOTE | 2016-11-24 09:01 | Internal Med Progress Note ---
<Riley Hernandez - Last Filed: 11/24/16 09:06> Date of Encounter: 11/24/16 Time of Encounter: 09:00 - Assessment and plan (1) Non-ST elevated myocardial infarction Status: Acute Assessment and plan: Mr. Mahan 66-year-old male without history of coronary artery disease or previous [place] was admitted with left sided chest pressure with pain radiating to left arm and left-sided headache. On admission he had troponins 2 first was 1.22 second was 2.58. EKG has been reviewed without signs of ST elevation. Cardiology has been consult to as evaluated the patient. Mr. Yeager was originally started on heparin and developed hematuria with retroperitoneal ultrasound demonstrating left-sided kidney stone at 8 mm and right sided 1.2 cm stone, no hydronephrosis demonstrated. It was determined that the benefit outweighed the risk for left heart catheterization. Plan: - Mr. gomez is to undergo left heart catheterization this morning. Continue nothing by mouth until post procedure. - Continue aspirin, Lipitor, Plavix 75 mg by mouth daily, Lopressor 12.5 mg by mouth, nitroglycerin drip and heparin IV. - Echocardiogram has been ordered (2) Headache Status: Acute Assessment and plan: Patient currently has a headache likely related to nitroglycerin drip. He did have a headache at the time of admission that did not demonstrate any acute intracranial abnormalities. Plan: - Continue monitoring patient's headache status after nitroglycerin IV has been discontinued Qualifiers: Headache type: unspecified Headache chronicity pattern: episodic headache Intractability: intractable Qualified Code(s): R51 - Headache (3) Hematuria Status: Acute Assessment and plan: Patient hematuria when heparinized. Retroperitoneal echocardiogram demonstrated left pelvic renal stone at 8 mm. And right pelvic renal stone at 1.2 cm. Patient currently denies any blood in his urine. Plan: - Continue to monitor as patient is undergoing left heart catheterization and anticoagulation. - Repeat a.m. CBC to monitor hemoglobin and hematocrit. (4) DVT prophylaxis Status: Acute Assessment and plan: Patient is currently on heparin. Plan to start SCDs after procedure. - Subjective Interval history: Mr. Lorenzo 66-year-old male is seen and evaluated patient bedside this morning. He is awake alert and interactive in no acute distress. He denies any current chest pain, chest pressure, radiation of pain to his left arm or left face. He is on nitroglycerin and believes that his headache is related to this medication. He denies any nausea, vomiting, change in vision, abdominal pain, diarrhea or constipation. He has been moving his bowels and bladder appropriately. He is planned for a cardiac catheterization this morning and he denies any reservations or concerns at this time. - Constitutional Vitals: Temp Pulse Resp BP Pulse Ox 98.6 F 67 15 127/77 96 11/24/16 05:00 11/24/16 05:00 11/24/16 05:00 11/24/16 05:00 11/24/16 05:00 General appearance: Present: A&O X 3, no acute distress Internal Medicine: Result - Labs CBC & Chem 7: 11/24/16 04:49 11/24/16 04:49 Labs: Short CBC 11/24/16 Range/Units 04:49 WBC 10.8 (4.3-11.1) K/mcL Hgb 14.3 (12.9-16.9) g/dL Hct 44.0 (37.5-50.1) % Plt Count 224 (140-400) K/mcL Neutrophils # 5.7 (1.6-8.9) K/mcL BMP 11/24/16 04:49 Sodium 138 Potassium 4.1 Chloride 104 Carbon Dioxide 24 BUN 17 Creatinine 0.90 Glucose 94 Calcium 9.7 Liver Function 11/24/16 Range/Units 04:49 Total Bilirubin 0.5 (0.2-1.2) mg/dL AST 26 (5-34) Units/L ALT 22 (0-55) Units/L Alkaline Phosphatase 117 (38-126) Units/L Albumin 3.4 L (3.5-5.0) g/dL - ABG Interpretation ABG results: PT/INR, D-dimer PT 11.7 Seconds (9.4-12.1) 11/22/16 14:02 D-Dimer 326 ng/mLFEU (0-500) 11/22/16 12:52 - Impressions Impressions Abdomen/Pelvis CT 11/23/16 17:00 IMPRESSION: Bilateral nephrolithiasis without obstruction. No bladder mass is identified. Bilateral small fat containing inguinal hernias. Bilateral cystic changes in the kidneys, without definite enhancing renal mass. No evidence of acute process seen. Atherosclerotic disease including coronary involvement. D/ / 11/23/2016 17:59:45 Devang Lee MD / henry Interpreting Provider: Devang Lee MD Consult Discharge Plan - Plan Instructions: Metoprolol (By mouth), Nitroglycerin, Rapid Release (By mouth), Isosorbide Mononitrate (By mouth), Atorvastatin (By mouth), Clopidogrel (By mouth), Myocardial Infarction (DC), Myocardial Infarction (GEN), Coronary Intravascular Stent Placement (DC), Acute Hematuria (DC), Acute Hematuria (GEN) , Coronary Intravascular Stent Placement, Alarm Mechanism Adjuster (GEN) Additional Instructions: Please follow activity restrictions per post heart cath instructions Referrals: El Herman MD [Primary Care Provider] - Kelly Archuleta CNP [Advanced Practice Nurse] - 12/01/16 1:20 pm Prescriptions: Nitroglycerin 0.4 mg SL Q5MIN PRN #1 vial PRN Reason: Chest Pain Atorvastatin [Lipitor] 40 mg PO HS #30 tablet Clopidogrel [Plavix] 75 mg PO DAILY #30 tablet Isosorbide MONOnitrate (24 HR) [Imdur] 30 mg PO DAILY #30 tab.er.24h Metoprolol [Lopressor] 12.5 mg PO BID #30 tablet <Trace Ramon - Last Filed: 11/24/16 17:40> - Assessment and plan (1) Non-ST elevated myocardial infarction Status: Acute (2) CAD (coronary artery disease) Status: Acute Qualifiers: Coronary Disease-Associated Artery/Lesion type: [place] artery [place] vs. transplanted heart: [place] heart Associated angina: without angina Qualified Code(s): I25.10 - Atherosclerotic heart disease of [place] coronary artery without angina pectoris (3) History of heart artery stent Status: Acute (4) Hematuria Status: Acute (5) Chronic pain syndrome Status: Chronic (6) Headache Status: Resolved Qualifiers: Headache type: unspecified Headache chronicity pattern: episodic headache Intractability: intractable Qualified Code(s): R51 - Headache (7) Nephrolithiasis Status: Chronic - Constitutional Vitals: Temp Pulse Resp BP Pulse Ox 98.6 F 67 15 127/77 96 11/24/16 05:00 11/24/16 05:00 11/24/16 05:00 11/24/16 05:00 11/24/16 05:00 Internal Medicine: Result - Labs CBC & Chem 7: 11/24/16 04:49 11/24/16 04:49 Labs: Short CBC 11/24/16 Range/Units 04:49 WBC 10.8 (4.3-11.1) K/mcL Hgb 14.3 (12.9-16.9) g/dL Hct 44.0 (37.5-50.1) % Plt Count 224 (140-400) K/mcL Neutrophils # 5.7 (1.6-8.9) K/mcL BMP 11/24/16 04:49 Sodium 138 Potassium 4.1 Chloride 104 Carbon Dioxide 24 BUN 17 Creatinine 0.90 Glucose 94 Calcium 9.7 Liver Function 11/24/16 Range/Units 04:49 Total Bilirubin 0.5 (0.2-1.2) mg/dL AST 26 (5-34) Units/L ALT 22 (0-55) Units/L Alkaline Phosphatase 117 (38-126) Units/L Albumin 3.4 L (3.5-5.0) g/dL - ABG Interpretation ABG results: PT/INR, D-dimer PT 11.7 Seconds (9.4-12.1) 11/22/16 14:02 D-Dimer 326 ng/mLFEU (0-500) 11/22/16 12:52 - Impressions Impressions Abdomen/Pelvis CT 11/23/16 17:00 IMPRESSION: Bilateral nephrolithiasis without obstruction. No bladder mass is identified. Bilateral small fat containing inguinal hernias. Bilateral cystic changes in the kidneys, without definite enhancing renal mass. No evidence of acute process seen. Atherosclerotic disease including coronary involvement. D/ / 11/23/2016 17:59:45 Devang Lee MD / henry Interpreting Provider: Devang Lee MD - Attending Attestation I examined this patient and my medical decision-making was reviewed with the Resident Physician on 11/24/16. I agree with the documented findings, disposition and treatment plan as described except to the extent set forth below. Please see discharge summary of today's date completed by me.
--- NOTE | 2016-11-24 11:27 | Cardiology Progress Note ---
Date of Encounter: 11/24/16 Time of Encounter: 11:00 Assessment and Plan (1) Non-ST elevated myocardial infarction Current Visit: Yes Status: Acute Peak troponin 2.58. LHC revealed 90% stenosis to the mid RCA and 99% stenosis to the distal RCA. He received bare metal stent 2 to the mid and distal RCA. There was no complications. There was a 70% stenosis in the mLAD, 60% in the distal LAD, 90% stenosis 1st OM, 50% 1st diagonal. Developed hematuria after heparin gtt--stopped. Urology consulted, hx of kidney stones. Hematuria resolved. Hemoglobin is stable. Outpatient follow-up with urology was recommended. Continue asa and plavix for at least 6 months. Continue statin and beta- idania. Add imdur. If he tolerates DAPT, PCI to the LAD in the outpatient setting is recommended. I will coordinate follow-up in 7-10 days. Cardiac rehabilitation after PCI to the LAD. Activity restrictions reviewed with patient. No heavy lifting over 10 pounds and no driving or one week. (2) CAD (coronary artery disease) Current Visit: Yes Status: Acute Aspirin, statin, beta idania, Plavix. Recommend adding Imdur and giving Rx for sublingual nitroglycerin. Qualifiers: Coronary Disease-Associated Artery/Lesion type: [place] artery [place] vs. transplanted heart: [place] heart Associated angina: without angina Qualified Code(s): I25.10 - Atherosclerotic heart disease of [place] coronary artery without angina pectoris (3) Hematuria Current Visit: Yes Status: Acute Urology signed off. Pt reports resolution of hematuria. Hgb stable. Discussion w patient/family: The assessment and plan as outlined above was discussed with the patient and/or family members who expressed understanding and agreement. All questions were answered. Thank you for involving us in the care of your patient. Please call with any questions. Subjective Principal diagnosis: NSTEMI Interval history: Mr. Thomas status post PCI. He denies any event overnight. Reports his urine is now mostly clear. Objective Vital Signs Temp Pulse Resp BP Pulse Ox 11/24/16 05:00 98.6 F 67 15 127/77 96 11/23/16 23:36 61 16 107/74 96 11/23/16 21:22 98 F 11/23/16 20:18 82 140/81 11/23/16 15:00 98.3 F 73 15 128/85 97 Intake and Output 11/23/16 11/24/16 11/24/16 23:59 07:59 15:59 Intake Total 0 / 0 236 / 236 Output Total 675 / 675 340 / 340 Balance -675 / -675 -104 / -104 Intake: Oral 0 / 0 236 / 236 Output: Urine 675 / 675 340 / 340 Other: Meal Breakfast Percent of Meal Consumed 100% Weight 88.4 kg Patient Weight 11/24/16 23:59 Weight 88.4 kg General: Conversant, No Apparent Distress HEENT: Atraumatic, Normocephaly, Mucus Membranes Moist Neck: No JVD, Normal carotid pulses Cardiac: Reg Rate and Rhythm, Normal S1 and S2, No Murmur Lungs: Normal Breath Sounds, No Wheeze, Rales, Rhonchi Neuro: Alert and responsive, No focal deficits noted Abdomen: Soft, Non-Tender Skin: No rashes noted on visualized skin Musculoskeletal: No Chest Wall Tenderness Extremities: No Clubbing, No Cyanosis, No Edema, Normal Pulses Results 11/24/16 04:49 11/24/16 04:49 Lab Results 11/24/16 11/24/16 04:49 04:49 WBC 10.8 Hgb 14.3 Hct 44.0 Plt Count 224 Sodium 138 Potassium 4.1 Chloride 104 Carbon Dioxide 24 BUN 17 Creatinine 0.90 Glucose 94 Calcium 9.7 Total Bilirubin 0.5 AST 26 ALT 22 Alkaline Phosphatase 117 - Imaging and Cardiology Echo: report reviewed Cardiac cath: report reviewed - EKG Interpretation EKG results cardiology: personally reviewed Consult Discharge Plan - Plan Instructions: Myocardial Infarction (DC), Myocardial Infarction (GEN), Coronary Intravascular Stent Placement (DC), Acute Hematuria (DC), Acute Hematuria (GEN), Coronary Intravascular Stent Placement, Broach Operator (GEN) Referrals: El Herman MD [Primary Care Provider] - Kelly Archuleta CNP [Advanced Practice Nurse] - 12/01/16 1:20 pm
[2016-11-24] MEDS ORDERED: Isosorbide MONOnitrate (24 HR) 30 MG TAB.ER.24H PO SCH (11:45)
--- NOTE | 2016-11-24 12:14 | Discharge Summary ---
Date of Encounter: 11/24/16 Time of Encounter: 12:10 - Discharge Diagnosis (1) Non-ST elevated myocardial infarction Priority: Primary Status: Acute (2) CAD (coronary artery disease) Priority: Primary Status: Acute Qualifiers: Coronary Disease-Associated Artery/Lesion type: [place] artery [place] vs. transplanted heart: [place] heart Associated angina: without angina Qualified Code(s): I25.10 - Atherosclerotic heart disease of [place] coronary artery without angina pectoris (3) History of heart artery stent Priority: Secondary Status: Acute (4) Hematuria Priority: Secondary Status: Acute (5) Chronic pain syndrome Priority: Secondary Status: Chronic (6) Headache Priority: Secondary Status: Resolved Qualifiers: Headache type: unspecified Headache chronicity pattern: episodic headache Intractability: intractable Qualified Code(s): R51 - Headache (7) Nephrolithiasis Priority: Secondary Status: Chronic - Discharge Medications Prescriptions: Nitroglycerin 0.4 mg SL Q5MIN PRN #1 vial PRN Reason: Chest Pain Atorvastatin [Lipitor] 40 mg PO HS #30 tablet Clopidogrel [Plavix] 75 mg PO DAILY #30 tablet Isosorbide MONOnitrate (24 HR) [Imdur] 30 mg PO DAILY #30 tab.er.24h Metoprolol [Lopressor] 12.5 mg PO BID #30 tablet Home Medications: Aripiprazole [Abilify] 2 mg PO HS 12/16/15 [History] Citalopram Hydrobromide [Celexa] 40 mg PO DAILY 12/16/15 [History] Gabapentin [Neurontin] 300 mg PO TID 12/16/15 [History] Oxycodone HCl [Roxicodone 30 MG Immed Release] 30 mg PO 5XD 12/16/15 [History] Oxycodone HCl/Acetaminophen [Percocet 10-325 mg Tablet] 1 tab PO TID PRN [History] Oxygen 2 l NS HS 07/18/16 [History] Aspirin Enteric Coated [Aspirin EC] 81 mg PO DAILY tablet. 11/24/16 [Rx] Atorvastatin [Lipitor] 40 mg PO HS #30 tablet 11/24/16 [Rx] Clopidogrel [Plavix] 75 mg PO DAILY #30 tablet 11/24/16 [Rx] Isosorbide MONOnitrate (24 HR) [Imdur] 30 mg PO DAILY #30 tab.er.24h 11/24/16 [ Rx] Metoprolol [Lopressor] 12.5 mg PO BID #30 tablet 11/24/16 [Rx] Nitroglycerin 0.4 mg SL Q5MIN PRN #1 vial 11/24/16 [Rx] Allergies/Adverse Reactions: Allergies sulfamethoxazole [From ] Adverse Reaction (Verified 12/16/15 05:34) Itching trimethoprim [From ] Adverse Reaction (Verified 12/16/15 05:34) Itching Procedures/tests Complete & Pending: Procedures Performed prior 72 hours Category Date Time Status CT abd pelvis wo no iv no oral [CT] Routine Cat Scan 11/23/16 17:00 Completed CL Cardiac Catheterization [CL] Routine [facility] 11/23/16 09:29 Completed EKG [ECG 12 lead ECG] [ECG] Routine Y 11/24/16 11:26 Ordered EV echocardiogram Routine Y 11/23/16 09:32 Completed Date of admission: 11/22/16 20:42 Primary care physician: El Herman MD Consults: 11/23/16 08:51 Consult to Cardiac Rehabilitation-Phase1 [CONS] Routine Comment: Reason for Consult: NSTEMI Call Completed: No 11/23/16 09:06 Consult to Urology [CONS] Routine Consulting Provider: Urologbi Ramirez Reason for Consult: Hematuria. Hx of kidney stones Time Notified: 08:30 Call Completed: Yes Discharging clinician: Trace Ramon Anticipated date of discharge: 11/24/16 - Patient Status Disposition: Home, Self-Care Condition: Good Functional capacity at discharge: independent ambulation Overall status at discharge: patient is progressing back to baseline - Discharge Instructions Instructions: Myocardial Infarction (DC), Myocardial Infarction (GEN), Coronary Intravascular Stent Placement (DC), Acute Hematuria (DC), Acute Hematuria (GEN), Coronary Intravascular Stent Placement, Telecommunication Engineer (GEN) Follow Up With: El Herman MD [Primary Care Provider] - Kelly Archuleta CNP [Advanced Practice Nurse] - 12/01/16 1:20 pm - Diet and Activity Activity: increase activity as tolerated Diet: low fat, low cholesterol, low salt diet Hospital course: Mr. Thomas is a 66 year old male with a history of HTN, TIA and renal stones presented to ED with chest pain. Initially pain was intermittent but then became constant. He was found to have elevated troponin of 1.22 and was placed on heparin drip and admitted for acute NSTEMI. Mr. Thomas was admitted to [facility] with acute NSTEMI. Repeat troponin was 2.58. He developed gross hematuria on the heparin and was noted to have bilateral nephrolithiasis. Due to acute VT, he was taken to cardiac catheterization and had bare metal stent x 2 placed in mid and distal RCA. He had improvement in his symptoms. He was evaluated by urology and hematuria was improving off heparin. H/H remained stable. He had uneventful night and had no further chest pain. On the morning of 11/24/16 he was feeling well. He was seen by cardiology and cleared for d/c and outpatient follow up. He was afebrile with good BP. At that time he was felt stable for d/c home. - Time Spent with Patient Total time spent providing and/or coordinating discharge services: 38min - Constitutional Vitals: Temp Pulse Resp BP Pulse Ox 98.6 F 67 15 127/77 96 11/24/16 05:00 11/24/16 05:00 11/24/16 05:00 11/24/16 05:00 11/24/16 05:00 General appearance: Present: A&O X 3, no acute distress - Head Head exam: Present: normocephalic - Eye Eye exam: Present: conjuntiva pink - ENT ENT exam: Present: mucous membranes moist - Respiratory Respiratory exam: Present: CTAB. Absent: rhonchi, wheezes - Cardiovascular Cardiovascular exam: Present: RRR. Absent: tachycardia - GI/Abdominal GI/Abdominal exam: Present: soft. Absent: tenderness - Extremities Exam Extremities exam: Present: warm. Absent: pedal edema - Neurological Exam Neurological exam: Present: alert, oriented X3, no focal deficits - Psychiatric Psychiatric exam: Present: normal affect, normal mood - Skin Skin exam: Present: warm. Absent: rash
--- NOTE | 2016-11-24 15:45 | Electrocardiograph Report ---
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
--- NOTE | 2016-11-24 15:45 | Electrocardiograph Report ---
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
--- NOTE | 2016-11-24 15:48 | Electrocardiograph Report ---
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
--- NOTE | 2016-11-24 17:13 | Invasive Diagnostic Lab Proc ---
Name: Pankaj Thomas Date of Study: 11/23/2016 Date: 1950 Ht: 66.9in Medical Record#: [id number] Age: 66 Wt: 194.23lb Gender: Male BSA: 2. Order #: [id number] BMI: 30.48 Physicians Procedure Physician: Ventura Parkinson MD, [facility] Referring MD: El Herman MD Referring MD: Staff Name Position Time In Sites, Alanna RT (R) Scrub 10:18 AM Lucia Gamble RN Machine Shorthand Reporter 10:18 AM Elsa Bran RN 10:18 AM Indications Indication Non-Stemi Procedures Performed Procedure L HRT ARTERY/VENTRICLE ANGIO PRQ CARD REVASC AZ 1 VSL MOD SED OTH PHYS/QHP 5/>YRS PRQ CARD BM STENT W/ANGIO 1 VSL MOD SED OTHER PHYS/QHP EA MOD SED OTHER PHYS/QHP EA Pre-Procedure Checklist Informed consent is complete signed and on chart. H\\T\\P is on chart. ID band is on and ID verified with patient. Patient NPO for procedure The procedure was described for the patient and questions were answered. ECG is on chart. Plan of Care Patient will tolerate the procedure without complications. Adequate level of comfort will be maintained. Hemodynamics will remain stable Patient will recover from procedure without complications. Respiratory function will be maintained. Cardiac rhythm will remain stable. Patient temperature will be maintained. Patient and/or family have verbalized understanding of the procedure. Patient Education Chief Complaint/Reason for Test: Cardiac Cath Developmental Category: Geriatric (65+ years) Developmentally Appropriate for Age: Yes Learning Barriers: None Education Needs: Procedure Education Method: Verbal Information Taught: Cardiac Cath Educational Evaluation: Able to repeat information Intravenous Access Time IV Size Location DC'd Fluid/Drip Rate Units RN 10:18 AM Started with 20g 1 1/4" Lt Antecubital 0.9NaCl 25 ml/hr Allergies SULFA (sulfonamide) sulfamethoxazole trimethoprim Vital Signs Time BP (mmHg) HR (bpm) O2 Sat. RR (bpm) LOC 10:49 AM / % 5 = Fully awake and oriented or at pre-proc level 10:49 AM / % 5 = Fully awake and oriented or at pre-proc level 11:04 AM / % 5 = Fully awake and oriented or at pre-proc level 10:24 AM 139 / 94 77 % 16 10:29 AM 116 / 75 72 99 % 16 10:34 AM 123 / 72 76 98 % 14 10:38 AM 94 / 57 83 95 % 16 10:39 AM 84 / 55 81 94 % 12 10:41 AM 100 / 71 83 96 % 15 10:44 AM 114 / 70 75 95 % 22 10:49 AM 101 / 69 73 97 % 14 10:54 AM 121 / 71 74 97 % 15 10:59 AM 124 / 72 74 97 % 12 11:04 AM 114 / 75 79 97 % 14 5 = Fully awake and oriented or at pre-proc level 11:09 AM 116 / 70 75 99 % 32 5 = Fully awake and oriented or at pre-proc level 11:14 AM 118 / 65 68 97 % 10 5 = Fully awake and oriented or at pre-proc level 11:19 AM 116 / 78 78 99 % 17 5 = Fully awake and oriented or at pre-proc level Procedural Medications Time Medication Dose Units Method Given By 10:25 AM Versed 2 mg Intravenous Lucia Gamble RN 10:25 AM Fentanyl 50 mcg Intravenous Lucia Gamble RN 10:22 AM Oxygen 2 L/min nasal cannula Lucia Gamble RN 10:36 AM Heparin 4000 units Nitroglycerin 200 mcg Verapamil 2.5 mg Intraarterial Ventura Parkinson MD, FACC 10:54 AM Heparin 1500 units Intravenous Lucia Gamble RN 10:59 AM Fentanyl 25 mcg Intravenous Lucia Gamble RN 11:00 AM Nitroglycerin 100 mcg Intracoronary Ventura Parkinson MD 11:30 AM Heparin 1000 units Intravenous Lucia Gamble RN ASA Classification: CLASS II- Mild systemic disease (i.e. well-controlled diabetes, hypertension, asthma, cigarette smoking) Marvin Score Preprocedure Postprocedure Activity 2- Moves 4 extremities sustained head lift Activity Circulation 2- SBP +/= 20 points of pre-anesthetic level Circulation Consciousness 2- Awake and alert oriented x 3 Consciousness O2 Saturation 2- Able to maintain O2 satruation of 92% on room air O2 Saturation Respiratory 2- Able to deep breathe and cough well Respiratory Total Score 10 Total Score Contrast Agent: Isovue Diagnostic Contrast: 93 ml Total Contrast: 93 ml Fluoro Dose: 1129 mGy Activated Clotting Time Time Seconds to Clot 10:54 AM 264 Procedure Log Time Note Enter By 10:18 AM Pt arrived to labor conciliator 2 at 10:18 ejohnson 10:18 AM Sites, Alanna RT (R) Position: Scrub Time in: 10:18 ejohnson 10:18 AM Lucia Gamble RN Position: Machine Shorthand Reporter Time in: :18 ejohnson 10:18 AM Elsa Bran RN Position: Time in: :18 ejohnson 10:18 AM Patient charges- Angio tray pack, Navilyst 3mm J, Pulse Oximetry and ACIST tubing and transducer ejohnson 10:18 AM IV Supplies used: J loop Angio Cath. ejohnson 10:18 AM Case Delayed No ejohnson 10:19 AM Hair removed from procedure site in procedure lab using clippers. Right wrist prepped with Chloraprep by Alanna Villalba RT (R) then patient draped. Skin intact. ejohnson 10:19 AM Meet and milind completed ejohnson 10:19 AM Sign in performed according to hospital policy. ejohnson 10:19 AM Procedure start : ejohnson 10: AM Time: 10:22 Oxygen on at 2 L/min per nasal cannula by Lucia Gamble RN ejohnson 10:23 AM Vitals capture started with the following parameters, Patient=Adult, Interval=5 min, Initial Wvdgqjrk=766 mmHg, Deflation Rate=5 mmHg, Cuff placed on Right Arm 10:23 AM CathStat 10:23 AM Recorded ECG: HR=77 Condition=Condition 1 10:24 AM HR=77 bpm, VVEL=061/94 mmhg, Resp=16 B/min, Comment=SR 10:25 AM Time: 10:25 Versed 2 mg Intravenous Given by Lucia Gamble RN ejohnson 10:25 AM Time: 10:25 Fentanyl 50 mcg Intravenous Given by Lucia Gamble RN ejohnson 10:29 AM HR=72 bpm, WXVJ=676/75 mmhg, SpO2=99.0 %, Resp=16 B/min, Comment=SR 10:30 AM patient complaints of bloody urine, red iin color. Dr. Parkinson aware ejohnson 10:34 AM HR=76 bpm, ZNDM=292/72 mmhg, SpO2=98.0 %, Resp=14 B/min, Comment=SR 10:35 AM Time out performed according to hospital policy ejohnson 10:36 AM Access obtained by percutaneous puncture. 6Fr 10cm Terumo Glidesheath sheath placed in right Radial artery. [id number] ejohnson 10:36 AM Time: 10:36 Patient given 4,000 units Heparin, 200 mcg Nitroglycerin, and 2.5 mg Verapamil Intraarterial by Ventura Parkinson MD, [facility] ejohnson 10:37 AM 5Fr TIG catheter inserted over the wire DN ejohnson 10:37 AM NIBP STAT measurement started. 10:38 AM Pressure channel 1 zeroed. 10:38 AM Recorded Pressure: LV, HR=77, Condition=Condition 1 (Left Ventricle) LV 92/5/10 10:38 AM Catheter selectively placed in left ventricle ejohnson 10:38 AM Bolus angiogram of left Ventricle complete: 10 ml/sec for a total of 30 mls ejohnson 10:38 AM HR=83 bpm, NIBP=94/57 mmhg, SpO2=95.0 %, Resp=16 B/min, Comment=SR 10:39 AM Recorded Pressure: LV, Ao, HR=77, Condition=Condition 1 (Left Ventricle) LV 93/6/12, (Aorta) Ao 81/57/65 10:39 AM Recorded Pressure: Ao, HR=71, Condition=Condition 1 (Aorta) Ao 75/59/66 10:39 AM HR=81 bpm, NIBP=84/55 mmhg, SpO2=94.0 %, Resp=12 B/min, Comment=SR 10:39 AM LCA angiography performed in multiple views. ejohnson 10:40 AM Recorded Pressure: Ao, HR=71, Condition=Condition 1 (Aorta) Ao 85/67/76 10:40 AM NIBP STAT measurement started. 10:41 AM IV fluids wide open ejohnson 10:41 AM HR=83 bpm, VRIY=348/71 mmhg, SpO2=96.0 %, Resp=15 B/min, Comment=SR 10:41 AM Recorded Pressure: Ao, HR=84, Condition=Condition 1 (Aorta) Ao 94/78/86 10:42 AM Coronary Dominance: right ejohnson 10:42 AM Catheter removed ejohnson 10:43 AM Inflation device was opened. ejohnson 10:44 AM HR=75 bpm, EIVQ=306/70 mmhg, SpO2=95.0 %, Resp=22 B/min, Comment=SR 10:44 AM 6Fr RBR 3.5 Convey guide catheter was used to cannulate the PCI vessel successfully. reused? No ejohnson 10:46 AM .014 PT Graphix 180cm guide wire across target lesion- successful. reused? No ejohnson 10:48 AM Guide wire removed intact. ejohnson 10:48 AM Guide catheter removed intact. ejohnson 10:48 AM 6Fr IM Runway guide catheter was used to cannulate the PCI vessel successfully. reused? No ejohnson 10:49 AM HR=73 bpm, WAQQ=716/69 mmhg, SpO2=97.0 %, Resp=14 B/min, Comment=SR 10:49 AM .014 PT Graphix 180cm guide wire across target lesion- successful. reused? Yes ejohnson 10:49 AM Time: 10:49 Patient comfortable and pain free: Yes ejohnson 10:49 AM Time: 10:49LOC: 5 = Fully awake and oriented or at pre-proc level ejohnson 10:51 AM IV rate decreased to 150ml/hr ejohnson 10:52 AM 2.5 mm x 20 mm Emerge Monorail balloon across target lesion- successful. reused? No ejohnson 10:53 AM Balloon inflated @ 14 radha for 9 seconds ejohnson 10:54 AM At 10:54 the ACT was 264 seconds. ejohnson 10:54 AM Balloon inflated @ 14 radha for 12 seconds ejohnson 10:54 AM HR=74 bpm, JQTJ=737/71 mmhg, SpO2=97.0 %, Resp=15 B/min, Comment=SR 10:54 AM Time: 10:54 Heparin 1500 units Intravenous Given by Lucia Gamble RN ejwinson 10:56 AM 3.0mm x 32mm Rebel [employer] bare metal stent across target lesion- successful Lot #[id number] ejohnson 10:58 AM Stent deployed @ 18 radha for 12 seconds ejohnson 10:59 AM Time: 10:59 Fentanyl 25 mcg Intravenous Given by Lucia Gamble RN ejwinson 10:59 AM HR=74 bpm, CXGR=716/72 mmhg, SpO2=97.0 %, Resp=12 B/min, Comment=SR 11:00 AM Time: 11:00 Nitroglycerin 100 mcg Intracoronary Given by eVntura Parkinson MD ejohnson 11:00 AM Arterial sheath pulled, Vasc Band closure device used and was Successful S/N. ejohnson 11:01 AM Stent delivery system removed intact. ejohnson 11:03 AM 3.0mm x 20mm Rebel [employer] bare metal stent across target lesion- successful Lot #[id number] ejohnson 11:03 AM Recorded Pressure: Ao, HR=78, Condition=Condition 1 (Aorta) Ao 115/77/96 11:04 AM HR=79 bpm, OSRR=283/75 mmhg, SpO2=97.0 %, Resp=14 B/min, Comment=SR 11:04 AM Lesion found in Mid RCA. Pre Stenosis: 90 Pre PEDRO Flow: 3: Complete and Brisk Flow/Perfusion ejohnson 11:04 AM Lesion found in Distal RCA. Pre Stenosis: 99 Pre PEDRO Flow: 3: Complete and Brisk Flow/Perfusion ejohnson 11:04 AM Time: 10:49 Patient comfortable and pain free: Yes ejohnson 11:04 AM Time: 10:49LOC: 5 = Fully awake and oriented or at pre-proc level ejohnson 11:04 AM Lesion found in 1st Marginal. Pre Stenosis: 90 Pre PEDRO Flow: 2: Partial Flow/Perfusion (> 1 but < 3) ejohnson 11:05 AM Right Coronary, Right Posterior Descending Arteries with Right Posterolateral and Acute Marginal branches with 99 % stenosis. ejohnson 11:05 AM Circumflex, Obtuse Marginal, Left Posterior Descending, and Left Posterolateral Coronary Arteries with 90 % stenosis. ejohnson 11:05 AM .014 Prowater 180cm guide wire across target lesion- successful. reused? No ejohnson 11:09 AM HR=75 bpm, JECJ=191/70 mmhg, SpO2=99.0 %, Resp=32 B/min, Comment=SR 11:11 AM Stent deployed @ 15 radha for 21 seconds ejohnson 11:13 AM Stent delivery system removed intact. ejohnson 11:14 AM HR=68 bpm, GIOK=948/65 mmhg, SpO2=97.0 %, Resp=10 B/min, Comment=SR 11:14 AM 3.25 mm x 20mm NC Emerge balloon across target lesion- successful. reused? No ejohnson 11:15 AM Balloon inflated @ 20 radha for 13 seconds ejohnson 11:17 AM Balloon inflated @ 20 radha for 10 seconds ejohnson 11:18 AM Balloon inflated @ 20 radha for 7 seconds ejohnson 11:18 AM Balloon catheter removed intact. ejohnson 11:19 AM HR=78 bpm, EVXS=405/78 mmhg, SpO2=99.0 %, Resp=17 B/min, Comment=SR 11:20 AM Time: 11:04LOC: 5 = Fully awake and oriented or at pre-proc level ejohnson 11:20 AM Time: 11:04 Patient comfortable and pain free: Yes ejohnson 11:22 AM Procedure completed at 11:22 ejohnson 11:23 AM Sign out completed: Radiation Dose 1129.33 mGy Fluoro Time: 16.6 Isovue 370 - 200ml contrast 93 ml given by Ventura Parkinson MD, FACC. Complications: NoneCardiac Rehab Consult needed: YesConfirmed administered medications: Yes ejohnson 11:23 AM 13 ml air in Vasc Band. 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 ejohnson 11:26 AM Post ECG NSR ejohnson 11:26 AM Post Blood Pressure 116/78 ejohnson 11:26 AM 11:26 Post Pulses Rt Radial 1+ ejohnson 11:26 AM Information taught Cardiac Cath and Vasc Band ejohnson 11:27 AM Education needs Plan of Care and Responsibilities of Patient in Care ejohnson 11:27 AM Learning barriers :None ejohnson 11:27 AM Education Methods Verbal ejohnson 11:27 AM Education evaluation Able to repeat information ejohnson 11:28 AM Site status No bleeding/hematoma - Rt Wrist as reported by Sites, Alanna RT (R) at 11:27 ejohnson 11:29 AM Time: 11:30 Heparin 1000 units Intravenous Given by Lucia Gamble RN ejohnson 11:30 AM Report given to Be RUCKER Pt taken to 2N Room #28. 11:30 ejohnson 11:30 AM Delay to floor No ejohnson 11:30 AM Patient out of room: 11:30 ejohnson 11:30 AM Family placed in consult room. ejohnson 11:30 AM Complications: None ejohnson Complications Complication None Hemodynamics Pressures Site Systolic/A Wave Diastolic/V Wave Mean LV 92 5 10 LV 93 6 12 AO 81 57 65 AO 75 59 66 AO 85 67 76 AO 94 78 86 AO 115 77 96 Post Procedure Information Blood Pressure: 116/78 mmHg Rhythm: NSR Post procedural instructions were given Closure Device Time Device Success/Fail 11/23/2016 11:20:00 AM Mechanical Compression Successful Site Checks Time Location Status Staff Sheath In? Note 11:27 AM Rt Wrist No bleeding/hematoma Sites, Alanna RT (R) Pulses Time Site Pre-Procedure Post-Procedure Note 11/23/2016 10:18:00 AM Bilateral DP \\T\\ PT 1+ 11/23/2016 10:18:00 AM Bilateral radial 2+ 11:26:00 AM Rt Radial 1+ Updated by Elsa Bran RN on 11/24/2016 5:06:32 PM Added procedure complete time Elsa Bran RN electronically signed on 11/24/2016 5:07:19 PM with status of Final
== END 2016-11-24 13:15 | disposition home or self-care (01) | DRG 249 ==
LOC: EMEROO 11:28 → 2NENU 11:28
PROVIDERS: ADMIT Nurse Practitioner Family; ATTEND Internal Medicine

== ENCOUNTER 2019-12-26 16:50 | Observation (INO) ==
[2019-12-26 18:24] LABS: Basophils % 0.2 %; Eosinophils # 0.4 K/mcL (0.0-0.6); Eosinophils % 4.6 %; Hematocrit 41.4 % (37.5-50.1); Hemoglobin 13.4 g/dL (12.9-16.9); Immature Granulocytes % 0.2 % (0-4); Lymphocytes % 23.3 %; Mean Corpuscular HGB Conc 32.4 g/dL (31.6-35.5); Mean Corpuscular Hemoglobin 31.2 pg (28.0-33.3); Mean Corpuscular Volume 96.5 fL (83.0-100.0); Mean Platelet Volume 10.1 fL (9.4-12.4); Monocytes # 0.9 K/mcL (0.0-1.3); Neutrophils # 5.3 K/mcL (1.6-8.9); Platelet Count 191 K/mcL (140-400); Red Blood Count 4.29 M/mcL (4.19-5.50); Red Cell Distribution Width 13.4 % (11.5-14.5); Segmented Neutrophils % 61.7 %; White Blood Count 8.5 K/mcL (4.3-11.1)
[2019-12-26 18:51] LABS: BUN/Creatinine Ratio 22 (6-26); Blood Urea Nitrogen 25 mg/dL (8-23); Calcium 9.2 mg/dL (8.6-10.3); Carbon Dioxide 23 mEq/L (23-29); Chloride 109 mEq/L (98-107); Glucose 140 mg/dL (70-105); Osmolality,Calculated 289 (280-300); Potassium 3.4 mEq/L (3.5-5.1); Sodium 136 mEq/L (136-145); eGFR For African Americans > 60 (> 60); eGFR For Non-African Americans > 60 (> 60)
[2019-12-26] MEDS ORDERED: Morphine Sulfate 2 MG/ML SYRINGE IVP ONE (18:51)
[2019-12-26] MEDS ORDERED: Naloxone 0.4 MG/ML INJ IVP PRN (20:03)
[2019-12-26] MEDS ORDERED: Ketorolac 15 MG/ML VIAL IVP PRN (20:03)
[2019-12-26] MEDS ORDERED: Ondansetron 4 MG/2 ML VIAL IVP PRN (20:03)
[2019-12-26] MEDS ORDERED: 0.9 % Sodium Chloride 1,000 ML IVC SCH (20:15)
[2019-12-26 20:27] LABS: Bilirubin,Urine Negative (Negative); Blood,Urine Trace (Negative); Clarity,Urine Clear (Clear); Color,Urine Yellow (Yellow); Glucose,Urine (UA) Normal (Normal); Ketones,Urine Negative (Negative); Leukocyte Esterase,Urine Trace (Negative); Nitrite,Urine Negative (Negative); PH,Urine 5.5 pH Units (5.0-8.0); Protein,Urine Negative (Neg-Trace); Specific Gravity,Urine 1.028 (1.010-1.025); Urobilinogen,Urine Normal (Normal)
[2019-12-26 20:30] LABS: Bacteria,Urine None Seen per hpf (None-Few); Hyaline Casts,Urine None Seen per lpf (None-Few); RBC,Urine 0-3 per hpf (0-3); Squamous Epithelial Cell,Urine Moderate per lpf (None-Few)
[2019-12-27 04:19] LABS: Hematocrit 40.8 % (37.5-50.1); Hemoglobin 13.4 g/dL (12.9-16.9); Mean Corpuscular HGB Conc 32.8 g/dL (31.6-35.5); Mean Corpuscular Hemoglobin 31.8 pg (28.0-33.3); Mean Corpuscular Volume 96.7 fL (83.0-100.0); Mean Platelet Volume 10.3 fL (9.4-12.4); Platelet Count 192 K/mcL (140-400); Red Blood Count 4.22 M/mcL (4.19-5.50); Red Cell Distribution Width 13.2 % (11.5-14.5); White Blood Count 8.4 K/mcL (4.3-11.1)
[2019-12-27 04:32] LABS: BUN/Creatinine Ratio 19 (6-26); Blood Urea Nitrogen 22 mg/dL (8-23); Carbon Dioxide 25 mEq/L (23-29); Chloride 108 mEq/L (98-107); Glucose 104 mg/dL (70-105); Osmolality,Calculated 290 (280-300); Potassium 3.5 mEq/L (3.5-5.1); Sodium 138 mEq/L (136-145); eGFR For African Americans > 60 (> 60); eGFR For Non-African Americans > 60 (> 60)
[2019-12-27] MEDS ORDERED: *HR* HYDROmorphone (PF) 1 MG/ML SYRINGE IVP ONE (13:59)
[2019-12-27] MEDS ORDERED: *HR* OxyCODONE Immed Rel 15 MG TABLET PO PRN ×2 (14:00→17:24)
[2019-12-27] MEDS ORDERED: *HR* HYDROmorphone (PF) 1 MG/ML SYRINGE IVP PRN ×2 (14:01→17:24)
[2019-12-27] MEDS ORDERED: Gabapentin 300 MG CAPSULE PO SCH (15:00)
[2019-12-27] MEDS ORDERED: Lidocaine -MPF 2% 2 ML VIAL ONE (15:39)
[2019-12-27] MEDS ORDERED: Ondansetron 4 MG/2 ML VIAL ONE (15:39)
[2019-12-27] MEDS ORDERED: Dexamethasone 4 MG/ML VIAL ONE (15:39)
[2019-12-27] MEDS ORDERED: *HR* HYDROmorphone PF 0.5 MG/0.5 ML SYRINGE IVP PRN (15:39)
[2019-12-27] MEDS ORDERED: *HR* Propofol 200 MG/20 ML VIAL IVP ONE (15:39)
[2019-12-27] MEDS ORDERED: *HR* FentaNYL (PF) 100 MCG/2 ML VIAL ONE (15:39)
[2019-12-27] MEDS ORDERED: *HR* OxyCODONE Immed Rel 5 MG TABLET PO PRN (15:39)
[2019-12-27] MEDS ORDERED: Naloxone 0.4 MG/ML INJ IVP PRN (17:24)
[2019-12-27] MEDS ORDERED: Ketorolac 15 MG/ML VIAL IVP PRN (17:24)
[2019-12-27] MEDS ORDERED: Nitroglycerin 0.4 MG TAB.SUBL SL PRN (17:24)
[2019-12-27] MEDS ORDERED: Ondansetron 4 MG/2 ML VIAL IVP PRN (17:24)
[2019-12-27] MEDS: Gabapentin 300 MG CAPSULE PO SCH (20:28)
[2019-12-27] MEDS ORDERED: ARIPiprazole 2 MG TABLET PO SCH ×2 (21:00)
[2019-12-28 08:14] LABS: Basophils % 0.1 %; Hematocrit 43.4 % (37.5-50.1); Hemoglobin 14.3 g/dL (12.9-16.9); Immature Granulocytes % 0.3 % (0-4); Lymphocytes # 1.9 K/mcL (0.6-4.6); Lymphocytes % 17.1 %; Mean Corpuscular HGB Conc 32.9 g/dL (31.6-35.5); Mean Corpuscular Hemoglobin 32.1 pg (28.0-33.3); Mean Corpuscular Volume 97.3 fL (83.0-100.0); Mean Platelet Volume 9.9 fL (9.4-12.4); Monocytes # 0.8 K/mcL (0.0-1.3); Monocytes % 7.5 %; Neutrophils # 8.1 K/mcL (1.6-8.9); Platelet Count 227 K/mcL (140-400); Red Blood Count 4.46 M/mcL (4.19-5.50); Red Cell Distribution Width 13.2 % (11.5-14.5); White Blood Count 10.8 K/mcL (4.3-11.1)
[2019-12-28 08:34] LABS: BUN/Creatinine Ratio 20 (6-26); Blood Urea Nitrogen 23 mg/dL (8-23); Calcium 9.8 mg/dL (8.6-10.3); Carbon Dioxide 26 mEq/L (23-29); Chloride 106 mEq/L (98-107); Glucose 117 mg/dL (70-105); Osmolality,Calculated 293 (280-300); Sodium 139 mEq/L (136-145); eGFR For African Americans > 60 (> 60); eGFR For Non-African Americans > 60 (> 60)
[2019-12-28] MEDS: Gabapentin 300 MG CAPSULE PO SCH (10:03)
[2019-12-28 10:13] VITALS: BP 138/75
[2020-01-03 00:20] LABS: Calculi Mass 147 mg
== END 2019-12-28 13:00 | disposition home or self-care (01) ==
LOC: 3ANU 16:50 → EMEROOARM 16:50 → SUATTDRO 20:36 → 3ANU 21:28
PROVIDERS: ADMIT Internal Medicine; ATTEND Student in an Organized Health Care Education/Training Program

== ENCOUNTER 2020-10-10 13:37 | Observation (INO) ==
[2020-10-10] MEDS: Aspirin 81 MG TAB.CHEW PO SCH (14:21)
[2020-10-10 14:22] LABS: Basophils % 0.3 %; Eosinophils # 0.4 K/mcL (0.0-0.6); Eosinophils % 6.1 %; Hematocrit 44.3 % (37.5-50.1); Hemoglobin 14.1 g/dL (12.9-16.9); Immature Granulocytes % 0.1 % (0-4); Lymphocytes # 2.1 K/mcL (0.6-4.6); Lymphocytes % 30.3 %; Mean Corpuscular HGB Conc 31.8 g/dL (31.6-35.5); Mean Corpuscular Hemoglobin 30.6 pg (28.0-33.3); Mean Corpuscular Volume 96.1 fL (83.0-100.0); Mean Platelet Volume 9.9 fL (9.4-12.4); Monocytes # 0.5 K/mcL (0.0-1.3); Monocytes % 7.6 %; Neutrophils # 3.9 K/mcL (1.6-8.9); Platelet Count 202 K/mcL (140-400); Red Blood Count 4.61 M/mcL (4.19-5.50); Red Cell Distribution Width 13.2 % (11.5-14.5); Segmented Neutrophils % 55.6 %; White Blood Count 6.9 K/mcL (4.3-11.1)
[2020-10-10 14:31] LABS: Prothrombin Time 11.8 Seconds (9.4-12.1)
[2020-10-10 14:34] LABS: Activated Partial Thrombo Time 27.8 Seconds (26.0-36.0)
[2020-10-10 14:51] LABS: BUN/Creatinine Ratio 24 (6-26); Blood Urea Nitrogen 22 mg/dL (8-23); Calcium 9.6 mg/dL (8.6-10.3); Carbon Dioxide 25 mEq/L (23-29); Chloride 105 mEq/L (98-107); Glucose 205 mg/dL (70-105); Lipase 23 Units/L (11-82); Osmolality,Calculated 295 (280-300); Potassium 4.2 mEq/L (3.5-5.1); Sodium 138 mEq/L (136-145); Troponin I < 0.03 ng/mL (< 0.04); eGFR For African Americans > 60 (> 60); eGFR For Non-African Americans > 60 (> 60)
[2020-10-10] MEDS ORDERED: Morphine Sulfate 2 MG/ML SYRINGE IVP ONE (15:25)
[2020-10-10] MEDS ORDERED: Naloxone 0.4 MG/ML INJ IVP PRN (15:45)
[2020-10-10] MEDS ORDERED: Ondansetron 4 MG/2 ML VIAL IVP PRN (15:45)
[2020-10-10] MEDS ORDERED: Perflutren Lipid Microsphere 1.3 ML in 0.9 % Sodium Chloride 8.7 ML IVP PRN (15:45)
[2020-10-10] MEDS ORDERED: *HR* OxyCODONE Immed Rel 15 MG TABLET PO PRN (15:48)
[2020-10-10] MEDS ORDERED: D5% in Water 1,000 ML IVC PRN (15:51)
[2020-10-10] MEDS ORDERED: *HR* Dextrose 50 % in Water (Vial) 50 ML VIAL IVP PRN (15:51)
[2020-10-10] MEDS ORDERED: Dextrose Gel 15 GM/37.5 ML TUBE PO PRN ×2 (15:51)
[2020-10-10] MEDS: Insulin LISPRO 300 UNITS/3 ML VIAL SQ SCH (17:17)
[2020-10-10] MEDS: Acetaminophen 325 MG TABLET PO PRN (17:31)
[2020-10-10] MEDS ORDERED: Insulin LISPRO 300 UNITS/3 ML VIAL SQ SCH (21:00)
[2020-10-10] MEDS ORDERED: ARIPiprazole 2 MG TABLET PO SCH (21:00)
[2020-10-10] MEDS: *HR* OxyCODONE/APAP 10/325 TABLET PO PRN (21:25)
[2020-10-10] MEDS: Gabapentin 300 MG CAPSULE PO SCH (21:26)
[2020-10-10 23:17] LABS: Estimated Average Glucose 134 mg/dl; Hemoglobin A1C 6.3 %
[2020-10-11] MEDS: *HR* OxyCODONE/APAP 10/325 TABLET PO PRN (05:30)
[2020-10-11] MEDS ORDERED: *HR* Enoxaparin 40 MG/0.4 ML SYRINGE SQ SCH (06:00)
[2020-10-11] MEDS: Insulin LISPRO 300 UNITS/3 ML VIAL SQ SCH ×2 (07:07→11:43)
[2020-10-11 07:16] LABS: Hematocrit 47.2 % (37.5-50.1); Mean Corpuscular HGB Conc 31.8 g/dL (31.6-35.5); Mean Corpuscular Hemoglobin 30.3 pg (28.0-33.3); Mean Corpuscular Volume 95.4 fL (83.0-100.0); Mean Platelet Volume 9.9 fL (9.4-12.4); Platelet Count 212 K/mcL (140-400); Red Blood Count 4.95 M/mcL (4.19-5.50); Red Cell Distribution Width 13.2 % (11.5-14.5); White Blood Count 7.9 K/mcL (4.3-11.1)
[2020-10-11] MEDS ORDERED: Regadenoson 0.4 MG/5 ML SYRINGE IVP ONE (07:28)
[2020-10-11 07:32] LABS: BUN/Creatinine Ratio 20 (6-26); Blood Urea Nitrogen 19 mg/dL (8-23); Carbon Dioxide 27 mEq/L (23-29); Chloride 104 mEq/L (98-107); Glucose 86 mg/dL (70-105); Magnesium 1.9 mg/dL (1.6-2.6); Osmolality,Calculated 290 (280-300); Potassium 3.8 mEq/L (3.5-5.1); Sodium 139 mEq/L (136-145); eGFR For African Americans > 60 (> 60); eGFR For Non-African Americans > 60 (> 60)
[2020-10-11] MEDS: Gabapentin 300 MG CAPSULE PO SCH (10:09)
[2020-10-11] MEDS: Aspirin 81 MG TAB.CHEW PO SCH (10:09)
[2020-10-11] MEDS: Acetaminophen 325 MG TABLET PO PRN (10:12)
[2020-10-11 10:39] VITALS: BP 129/78
== END 2020-10-11 13:50 | disposition home or self-care (01) ==
LOC: EMEROOARM 13:37 → 3BNU 13:37
PROVIDERS: ADMIT Internal Medicine; ATTEND Internal Medicine